=== PATIENT | male | born 1950 | race Caucasian/White ===

== ENCOUNTER → 2017-05-01 | Outpatient (CLI) | payer MEDICARE ==
[~2017-05-01] MED LIST: ACET325T38 PO; B/P PO; CYCL10TA9 PO; OTC DECONGESTANT PO; TRAM50TA2 PO
--- NOTE | 2017-05-01 16:33 | Diagnostic Imaging Report ---
INDICATION: Shortness of breath. EXAMINATION: PA and lateral chest. FINDINGS: There is scoliosis of the thoracic spine convex to the right. Heart size and pulmonary vascularity are normal. Lungs are clear. There are no effusions or pneumothoraces. IMPRESSION: Negative chest. Dictated by: Dictated on workstation # [id number]
== END ==
LOC: RAD 16:18
PROVIDERS: ATTEND Family Medicine
DX: M41.34 Thoracogenic scoliosis, thoracic region (principal); R06.02 Shortness of breath
CPT/HCPCS: 71020

== ENCOUNTER 2017-09-02 07:10 | Day surgery (SDC) | payer MEDICARE ==
[~2017-09-02] VITALS: Ht 172.7 cm; Wt 88.5 kg
[~2017-09-02 07:10] MED LIST changes: +BENA10TA2 PO; +C250T PO; +CALC-654 PO; +MULT1TAB69 PO; +RT-ALBUINH IH; +[UNRECOGNIZED DRUG - OTHER] IH
[2017-09-02] MEDS ORDERED: NS IV 500 ML 500 ML ONE (07:22)
[2017-09-02] MEDS ORDERED: NS IV 500 ML 500 ML IV SCH (07:30)
[2017-09-02 07:39] VITALS: BP 128/89
--- NOTE | 2017-09-02 08:27 | History & Physicial ---
History of Present Illness History of Present Illness Reason for visit/HPI to undergo colonoscopy regarding heme-positive stools. No family history of colon cancer or polyps Date of Admission Date Seen by Provider: Sep 02, 2017 Time Seen by Provider: 08:25 I consulted on this patient on 09/02/17 08:24 Attending Physician Candice Barrera MD Admitting Physician Portillo Brunner DO Consult Allergies and Home Medications Allergies Coded Allergies: No Known Drug Allergies (Unverified , 02/09/16) Home Medications Albuterol Sulfate 6.7 Gm Hfa.aer.ad, 2 PUFF IH TID, (Reported) Ascorbic Acid 250 Mg Tab, 500 MG PO DAILY, (Reported) Benazepril HCl 10 Mg Tablet, 10 MG PO DAILY, (Reported) Calcium Carbonate/Vitamin D3 1 Each Tablet, 2 EACH PO DAILY, (Reported) Multivitamin 1 Each Tablet, 1 EACH PO DAILY, (Reported) [Bespi] , 2 PUFF IH BID, (Reported) Past Bdwhfgj-Hdmwbn-Yerjxr Hx Patient Social History Marrital Status: Employed/Student: retired Alcohol Use: Denies Use Recreational Drug Use: No Smoking Status: Never a Smoker Recent Foreign Travel: No Contact w/other who traveled: No Recent Hopitalizations: No Immunizations Up To Date Tetanus Booster (TDap): Unknown Date of Pneumonia Vaccine: Aug 30, 2015 Date of Influenza Vaccine: Jul 30, 2017 Seasonal Allergies Seasonal Allergies: No Respiratory Yes COPD Cardiovascular Yes Hypertension Neurological No Genitourinary No Gastrointestinal No Musculoskeletal Yes Arthritis Endocrine History of Endocrine Disorders: No HEENT History of HEENT Disorders: No Cancer No Family Medical History Significant Family History: No Pertinent Family Hx Constitutional: no symptoms reported EENTM: no symptoms reported Respiratory: no symptoms reported Cardiovascular: no symptoms reported Gastrointestinal: no symptoms reported Genitourinary: no symptoms reported Musculoskeletal: no symptoms reported Skin: no symptoms reported Psychiatric/Neurological: No Symptoms Reported Physical Exam Vital Signs Vital Sign - Last 12Hours 09/02/17 07:39 Temp 97.6 Pulse 89 Resp 18 B/P (MAP) 128/89 Pulse Ox 93 O2 Delivery Room Air Capillary Refill : General Appearance: No Apparent Distress HEENT: Normal ENT Inspection Neck: Normal Inspection Respiratory: Lungs Clear Cardiovascular: Regular Rate, Rhythm Gastrointestinal: Non Tender, Soft Rectal: Deferred Back: Normal Inspection Extremity: Normal Inspection Neurologic/Psychiatric: Alert, Oriented x3 Skin: Warm/Dry Assessment/Plan Assessment and Plan gentleman with a positive Hemoccult test. Polyps, carcinoma etc. discussed. Details of colonoscopy reviewed;seems to be in agreement to proceed Problems: CANDICE BARRERA MD Sep 02, 2017 8:27 am
--- NOTE | 2017-09-02 08:27 | Conscious Sedation/ASA ---
Conscious Sedation Pre-Proced Time Reviewed: 08:27 ASA Class: 2 Airway Mallampati Classification: ([place] appropriate class) I. II. III, IV Lungs Heart ASA score ASA 1: a normal healthy patient ASA 2: a patient with a mild systemic disease (mid diabetes, controlled hypertension, obesity ASA 3: a patient with a severe systemic disease that limits activity (angina , COPD, prior Myocardial infarction) ASA 4: a patient with an incapacitating disease that is a constant threat to life (CHF, renal failure) ASA 5: a moribund patient not expected to survive 24 hrs. (ruptured aneurysm) ASA 6: a declared brain patient whose organs are being harvested. For emergent operations, add the letter E after the classification Grade 1 Sedation Plan: Discussed options with patient/fam Note The patient is an appropriate candidate to undergo the planned procedure, sedation, and anesthesia. The patient immediately re-assessed prior to indication. CANDICE BARRERA MD Sep 02, 2017 8:27 am
[2017-09-02] MEDS ORDERED: fentaNYL INJECTION 100 MCG/2 ML AMP ONE ×2 (08:31→08:32)
[2017-09-02] MEDS ORDERED: MIDAZOLAM 2 MG/2 ML (VERSED) VIAL ONE ×4 (08:32)
[2017-09-02] MEDS: fentaNYL INJECTION 100 MCG/2 ML AMP IVP PRN ×2 (08:50→08:57)
[2017-09-02] MEDS: MIDAZOLAM 2 MG/2 ML (VERSED) VIAL IVP PRN ×2 (08:55→08:58)
--- NOTE | 2017-09-02 09:21 | Endo Procedure Record ---
Endo Procedure Report Date of Procedure Sep 02, 2017 Surgeon (s) CANDICE BARRERA MD Post Procedure/Op Diagnosis 1 mm polyps 4 at the distal rectum 3 mm sessile polyp at the mid transverse colon Procedure Performed colonoscopy to cecum Hot biopsy polypectomy 4rectum snare polypectomy 1 Description of Procedure Anesthesia Type: Conscious Sedation Specimen(s) collected/removed rectal polyps. Polyp at transverse colon Description of the Procedure Indication for procedure: This gentleman was found to have positive Hemoccult test.therefore, he came in for colonoscopy. He denied any family history of colon cancer. Informed consent was obtained after reviewing the procedure in detail. Description of the procedure: She was placed in left lateral decubitus position and his vital signs were monitored. Conscious sedation was achieved using Versed and fentanyl. Examination of the perianal area revealed skin tags and a minimal degree of external hemorrhoids. Digital rectal examination was unremarkable. The colonoscope was introduced in the rectum and advanced to the cecum. It was then withdrawn slowly and the mucosa examined in a systematic fashion. Findings: 1. Internal hemorrhoids 2. Very few sigmoid diverticula 3. A total of 4 polyps, a millimeter each at the distal rectum. These were excised with hot biopsy forceps. 4. 3 mm sessile polyp at the mid transverse colon that was snared and retrieved. He tolerated the procedure well and was taken back to the nursing area in a stable condition. Impression: Heme occult positive test. Small rectal and a sessile polyp from the transverse colon excised. Recommend repeating in 3 years. Copies To: BRIAN NIX XAVIER M MD Sep 02, 2017 9:21 am
--- NOTE | 2017-09-02 09:22 | Discharge Inst-Simple/Standard ---
Discharge Inst-Standard Discharge Medications New, Converted or Re-Newed RX: Other Patient Instructions/Follow Up Plan of Care/Instructions/FU: repeat colonoscopy in 3 years Activity as Tolerated: Yes Discharge Diet: No Restrictions CANDICE BARRERA MD Sep 02, 2017 9:22 am
[2017-09-02 09:35] VITALS: BP 127/69
[2017-09-02 10:05] VITALS: BP 130/73
[2017-09-02 10:10] VITALS: BP 130/73
== END 2017-09-02 10:10 | disposition home or self-care (01) ==
LOC: ENDO 07:10
PROVIDERS: ATTEND Surgery
DX: K63.5 Polyp of colon (principal); K63.4 Enteroptosis; J44.9 Chronic obstructive pulmonary disease, unspecified; I10 Essential (primary) hypertension

== ENCOUNTER 2019-01-22 19:35 | Emergency (ER) | payer MEDICARE ==
[~2019-01-22] VITALS: Ht 172.7 cm; Wt 87.5 kg
[~2019-01-22 19:35] MED LIST changes: -BENA10TA2 PO; +BENA10TA7 PO
[2019-01-22] MEDS ORDERED: MELO15TA39 (19:43)
[2019-01-22] MEDS ORDERED: ATOR10TA66 (19:43)
[2019-01-22] MEDS ORDERED: DICL75TA2 (19:43)
--- NOTE | 2019-01-22 19:48 | ED General ---
General Chief Complaint: General Problems/Pain Stated Complaint: WEAKNESS Source of Information: Patient Exam Limitations: No Limitations History of Present Illness Date Seen by Provider: Jan 22, 2019 Time Seen by Provider: 19:45 Initial Comments To ER per EMS from home with reports of sudden onset weakness. He was standing at the microwave warming up dinner as he had not eaten all day when he became suddenly. He had to go sit down table where he became diaphoretic, short of breath and generally weak. EMS arrived and found an initial heart rate in the 80s, initial blood pressure of 90/60. Initial blood sugar of 151. He had no chest pain and no focal neurologic deficit or focal weakness. Upon arrival to the emergency room his blood pressures up to 104/76 and he states that he feels essentially back to normal. His blood pressures typically in the 140-150 systolic range, he does take benazepril 10 mg daily, no other antihypertensives. His shortness of breath has resolved and he continues to deny chest pain Timing/Duration: 1/2 Hour Severity: Moderate Associated Systoms: No Chest Pain, No Cough; Diaphoresis; No Fever/Chills, No Headaches, No Loss of Appetite, No Malaise, No Nausea/Vomiting, No Rash; Shortness of Air, Weakness Allergies and Home Medications Allergies Coded Allergies: No Known Drug Allergies (Unverified , 02/09/16) Home Medications Albuterol Sulfate 6.7 Gm Hfa.aer.ad, 2 PUFF IH TID, (Reported) Ascorbic Acid 250 Mg Tab, 500 MG PO DAILY, (Reported) Benazepril HCl 10 Mg Tablet, 10 MG PO DAILY, (Reported) Calcium Carbonate/Vitamin D3 1 Each Tablet, 2 EACH PO DAILY, (Reported) Multivitamin 1 Each Tablet, 1 EACH PO DAILY, (Reported) [Bespi] , 2 PUFF IH BID, (Reported) Patient Home Medication List Home Medication List Reviewed: Yes Review of Systems Review of Systems Constitutional: see HPI, diaphoresis, weakness EENTM: see HPI Respiratory: see HPI, short of breath Cardiovascular: no symptoms reported; No chest pain, No edema, No Hx of Intervention, No palpitations; syncope (near syncope); No vascular heart diseas Musculoskeletal: no symptoms reported, see HPI Skin: no symptoms reported Psychiatric/Neurological: No Symptoms Reported Hematologic/Lymphatic: No Symptoms Reported Immunological/Allergic: no symptoms reported Past Nahfpiw-Tllzsm-Wagoae Hx Patient Social History Recent Foreign Travel: No Contact w/Someone Who Travel: No Recent Hopitalizations: No Immunizations Up To Date Tetanus Booster (TDap): Unknown Date of Pneumonia Vaccine: Aug 30, 2015 Date of Influenza Vaccine: Jul 30, 2017 Seasonal Allergies Seasonal Allergies: No Past Medical History Respiratory: Yes COPD Cardiac: Yes Hypertension Neurological: No Genitourinary: No Gastrointestinal: No Musculoskeletal: Yes Arthritis Endocrine: No HEENT: No Cancer: No Family Medical History No Pertinent Family Hx Physical Exam Vital Signs Vital Signs - First Documented 01/22/19 01/22/19 19:35 19:36 Temp 96.2 Pulse 86 Resp 17 B/P (MAP) 107/67 (80) Pulse Ox 97 O2 Delivery Room Air Capillary Refill : Height, Weight, BMI Height: 5'8.00" Weight: 195lbs. 0.0oz. 88.393428kg; 29.7 BMI Method:Estimated General Appearance: No Apparent Distress, WD/WN, Other (alert and oriented, conversing appropriately with me. GCS 15. No longer diaphoretic, heart rate is in a sinus without ectopy, blood pressure 104 over 70s.) Eyes: Bilateral Eye Normal Inspection, Bilateral Eye PERRL, Bilateral Eye EOMI HEENT: PERRL/EOMI, Normal ENT Inspection Neck: Full Range of Motion, Normal Inspection Respiratory: Normal Breath Sounds, No Accessory Muscle Use, No Respiratory Distress Cardiovascular: Regular Rate, Rhythm, Normal Peripheral Pulses Gastrointestinal: Normal Bowel Sounds, Non Tender, Soft Extremity: Normal Capillary Refill, Normal Inspection Neurologic/Psychiatric: Alert, Oriented x3 Skin: Normal Color, Warm/Dry Progress/Results/Core Measures Suspected Sepsis SIRS Temperature: Pulse: Respiratory Rate: Laboratory Tests 01/22/19 19:35: White Blood Count 16.4H Blood Pressure / Mean: Laboratory Tests 01/22/19 19:35: Creatinine 1.42H, Platelet Count 255, Total Bilirubin 0.7 Results/Orders Lab Results Laboratory Tests Test 01/22/19 19:35 01/22/19 20:17 Range/Units White Blood Count 16.4 H 4.3-11.0 10^3/uL Red Blood Count 4.61 4.35-5.85 10^6/uL Hemoglobin 15.5 13.3-17.7 G/DL Hematocrit 45 40-54 % Mean Corpuscular Volume 98 80-99 FL Mean Corpuscular Hemoglobin 34 25-34 PG Mean Corpuscular Hemoglobin Concent 34 32-36 G/DL Red Cell Distribution Width 13.1 10.0-14.5 % Platelet Count 255 130-400 10^3/uL Mean Platelet Volume 9.8 7.4-10.4 FL Neutrophils (%) (Auto) 82 H 42-75 % Lymphocytes (%) (Auto) 11 L 12-44 % Monocytes (%) (Auto) 5 0-12 % Eosinophils (%) (Auto) 2 0-10 % Basophils (%) (Auto) 0 0-10 % Neutrophils # (Auto) 13.5 H 1.8-7.8 X 10^3 Lymphocytes # (Auto) 1.8 1.0-4.0 X 10^3 Monocytes # (Auto) 0.8 0.0-1.0 X 10^3 Eosinophils # (Auto) 0.3 0.0-0.3 10^3/uL Basophils # (Auto) 0.0 0.0-0.1 10^3/uL Neutrophils % (Manual) 89 % Lymphocytes % (Manual) 6 % Monocytes % (Manual) 4 % Eosinophils % (Manual) 1 % Basophils % (Manual) 0 % Band Neutrophils 0 % Blood Morphology Comment NORMAL Sodium Level 136 135-145 MMOL/L Potassium Level 5.0 3.6-5.0 MMOL/L Chloride Level 100 98-107 MMOL/L Carbon Dioxide Level 26 21-32 MMOL/L Anion Gap 10 5-14 MMOL/L Blood Urea Nitrogen 17 7-18 MG/DL Creatinine 1.42 H 0.60-1.30 MG/DL Estimat Glomerular Filtration Rate 49 BUN/Creatinine Ratio 12 Glucose Level 157 H 70-105 MG/DL Calcium Level 10.1 8.5-10.1 MG/DL Corrected Calcium 9.9 8.5-10.1 MG/DL Magnesium Level 2.2 1.8-2.4 MG/DL Total Bilirubin 0.7 0.1-1.0 MG/DL Aspartate Amino Transf (AST/SGOT) 24 5-34 U/L Alanine Aminotransferase (ALT/SGPT) 43 0-55 U/L Alkaline Phosphatase 75 40-136 U/L Myoglobin 53.0 10.0-92.0 NG/ML Troponin I < 0.028 <0.028 NG/ML B-Type Natriuretic Peptide 23.9 <100.0 PG/ML Total Protein 7.3 6.4-8.2 GM/DL Albumin 4.3 3.2-4.5 GM/DL Urine Color YELLOW Urine Clarity SLIGHTLY CLOUDY Urine pH 5 5-9 Urine Specific Gibson 1.015 L 1.016-1.022 Urine Protein 3+ H NEGATIVE Urine Glucose (UA) 1+ H NEGATIVE Urine Ketones 1+ H NEGATIVE Urine Nitrite NEGATIVE NEGATIVE Urine Bilirubin NEGATIVE NEGATIVE Urine Urobilinogen 1 NORMAL MG/DL Urine Leukocyte Esterase 2+ H NEGATIVE Urine RBC (Auto) 1+ H NEGATIVE Urine RBC 0-2 /HPF Urine WBC 5-10 H /HPF Urine Crystals NONE /LPF Urine Bacteria TRACE /HPF Urine Casts PRESENT /LPF Urine Hyaline Casts >50 H /LPF Urine Granular Casts 2-5 H /LPF Urine Mucus SMALL H /LPF Urine Culture Indicated YES My Orders Orders - RONY KELLER APRN Cbc With Automated Diff (01/22/19 19:42) Magnesium (01/22/19 19:42) Chest 1 View, Ap/Pa Only (01/22/19 19:42) Ekg Tracing (01/22/19 19:42) Cardiac Profile 1 (01/22/19 19:42) Comprehensive Metabolic Panel (01/22/19 19:42) Myoglobin Serum (01/22/19 19:42) O2 (01/22/19 19:42) Monitor-Rhythm Ecg Trace Only (01/22/19 19:42) Lipid Panel (01/23/19 06:00) Saline Lock/Iv-Start (01/22/19 19:42) BNP (01/22/19 19:42) Manual Differential (01/22/19 19:35) Ua Culture If Indicated (01/22/19 20:01) Urine Culture (01/22/19 20:17) Rocephin 1 Gm Iv (1x Dose) (01/22/19 21:00) Vital Signs/I&O 01/22/19 01/22/19 19:35 19:36 Temp 96.2 Pulse 86 Resp 17 B/P (MAP) 107/67 (80) Pulse Ox 97 97 O2 Delivery Room Air Room Air Capillary Refill : Diagnostic Imaging Diagonstic Imaging: Xray Comments NAME: TOYA CHAVEZ [facility] REC#: [id number] PT STATUS: REG ER : 1950 PHYSICIAN: RONY KELLER APRN ADMIT DATE: 01/22/19/ER Draft Date of Exam:01/22/19 CHEST 1 VIEW, AP/PA ONLY INDICATION: Weakness. FINDINGS: Upright chest shows normal heart size and vascularity. The lungs are clear. There is local eventration of the left hemidiaphragm. There is no effusion or pneumothorax. There is scoliosis with no acute bony abnormality. IMPRESSION: No acute abnormality is seen with no change from 05/01/2017. Dictated on workstation # [id number] Dict: 01/22/192004 Trans: 01/22/192009 [facility] [id number] Interpreted by: GABRIELLA YOUNG MD Electronically signed by: Departure Communication (Admissions) 2051-he states that he feels back to normal and "ready to go home". Discussed with him a bladder infection. We'll give a dose of Rocephin here and then discharged to home. Blood pressure 110/64, heart rate 80s no ectopy sinus. Impression Primary Impression: Transient hypotension Additional Impression: Urinary tract infection Disposition: 01 HOME, SELF-CARE Condition: Stable Departure-Patient Inst. Decision time for Depature: 20:53 Referrals: BRIAN NIX DO (PCP/Family) Primary Care Physician Patient Instructions: Urinary Tract Infection, Adult (DC) Add. Discharge Instructions: 1. Go see Dr. Dr. Nix tomorrow. Return to ER for any concerns All discharge instructions reviewed with patient and/or family. Voiced understanding. Scripts Cefuroxime Axetil (Cefuroxime) 250 Mg Tablet 250 MG PO BID, #14 TAB Prov: RONY KELLER APRN 01/22/19 Copy Copies To 1: BRIAN NIX PETER J APRN Jan 22, 2019 19:48
[2019-01-22 19:50] LABS: BASOPHILS % (AUTO) 0 % (0-10); EOSINOPHILS # (AUTO) 0.3 10^3/uL (0.0-0.3); EOSINOPHILS % (AUTO) 2 % (0-10); HEMATOCRIT 45 % (40-54); HEMOGLOBIN 15.5 G/DL (13.3-17.7); LYMPHOCYTES # (AUTO) 1.8 X 10^3 (1.0-4.0); LYMPHOCYTES % (AUTO) 11 % (12-44); MEAN CORPUSCULAR HEMOGLOBIN 34 PG (25-34); MEAN CORPUSCULAR HGB CONC 34 G/DL (32-36); MEAN CORPUSCULAR VOLUME 98 FL (80-99); MEAN PLATELET VOLUME 9.8 FL (7.4-10.4); MONOCYTES # (AUTO) 0.8 X 10^3 (0.0-1.0); MONOCYTES % (AUTO) 5 % (0-12); NEUTROPHILS # (AUTO) 13.5 X 10^3 (1.8-7.8); NEUTROPHILS % (AUTO) 82 % (42-75); PLATELET COUNT 255 10^3/uL (130-400); RED CELL DISTRIBUTION WIDTH 13.1 % (10.0-14.5); WHITE BLOOD COUNT 16.4 10^3/uL (4.3-11.0)
[2019-01-22 20:03] LABS: ALANINE AMINOTRANSFERASE 43 U/L (0-55); ALBUMIN 4.3 GM/DL (3.2-4.5); ALKALINE PHOSPHATASE 75 U/L (40-136); BILIRUBIN,TOTAL 0.7 MG/DL (0.1-1.0); BUN/CREATININE RATIO 12; CALCIUM 10.1 MG/DL (8.5-10.1); CARBON DIOXIDE 26 MMOL/L (21-32); CHLORIDE 100 MMOL/L (98-107); CREATININE SERUM 1.42 MG/DL (0.60-1.30); GFR ESTIMATED 49; GLUCOSE 157 MG/DL (70-105); MAGNESIUM 2.2 MG/DL (1.8-2.4); SODIUM 136 MMOL/L (135-145); TOTAL PROTEIN 7.3 GM/DL (6.4-8.2)
[2019-01-22 20:08] LABS: BAND NEUTROPHILS 0 %; BASOPHILS % (MANUAL) 0 %; EOSINOPHILS % (MANUAL) 1 %; LYMPHOCYTES % (MANUAL) 6 %; MONOCYTES % (MANUAL) 4 %; NEUTROPHILS % (MANUAL) 89 %; RBC MORPH NORMAL
--- NOTE | 2019-01-22 20:11 | Diagnostic Imaging Report ---
INDICATION: Weakness. FINDINGS: Upright chest shows normal heart size and vascularity. The lungs are clear. There is local eventration of the left hemidiaphragm. There is no effusion or pneumothorax. There is scoliosis with no acute bony abnormality. IMPRESSION: No acute abnormality is seen with no change from 05/01/2017. Dictated by: Dictated on workstation # [id number]
[2019-01-22 20:29] LABS: BILIRUBIN,URINE NEGATIVE (NEGATIVE); CLARITY,URINE SLIGHTLY CLOUDY; GLUCOSE, URINE (UA) 1+ (NEGATIVE); KETONES,URINE 1+ (NEGATIVE); LEUKOCYTE ESTERASE ,URINE 2+ (NEGATIVE); NITRITE,URINE NEGATIVE (NEGATIVE); PH,URINE 5 (5-9); PROTEIN,URINE 3+ (NEGATIVE); UROBILINOGEN,URINE 1 MG/DL (NORMAL)
--- NOTE | 2019-01-22 20:30 | NUR ---
ems iv fluids finished.
[2019-01-22 20:40] LABS: BACTERIA,URINE TRACE /HPF; COLOR,URINE YELLOW; HYALINE CASTS, URINE >50 /LPF; RBC,URINE 0-2 /HPF
[2019-01-22] MEDS ORDERED: CEFU250T80 PO (20:54)
[2019-01-22] MEDS ORDERED: cefTRIAXone FOR IV USE 1,000 MG in WATER (STERILE) FOR INJECTION 10 ML IV ONE (21:00)
[2019-01-22 21:01] VITALS: BP 118/69
== END 2019-01-22 21:04 | disposition home or self-care (01) ==
LOC: EDUNIT# 19:35 → ER 19:36
DX: I95.9 Hypotension, unspecified (principal); N39.0 Urinary tract infection, site not specified; J44.9 Chronic obstructive pulmonary disease, unspecified; I10 Essential (primary) hypertension
CPT/HCPCS: 36415; 71045; 80053; 81000; 83735; 83874; 83880; 84484; 85007; 85027; 87088; 93005; 93041

== ENCOUNTER 2019-03-06 12:32 | Emergency (ER) | payer MEDICARE ==
[~2019-03-06] VITALS: Ht 176.5 cm; Wt 88.5 kg
[~2019-03-06 12:32] MED LIST changes: +ATOR10TA66; +CEFU250T80 PO; +DICL75TA2; +MELO15TA39
[2019-03-06] MEDS ORDERED: LIDOCAINE 1% INJ 20 ML 20 ML VIAL INJ ONE (13:00)
[2019-03-06] MEDS ORDERED: TETANUS,DIPTH,PERTUSS P/F (BOOSTRIX) 0.5 ML VIAL IM ONE (13:00)
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
[2019-03-06 13:47] VITALS: BP 130/80
--- NOTE | 2019-03-06 13:57 | NUR ---
NEOSPORIN OINTMENT WAS PLACED ON THE WOUND. A NONSTICK DRESSING WAS PLASED ON THE WOUND.
== END 2019-03-06 13:56 | disposition home or self-care (01) ==
LOC: EDUNIT# 12:32 → ER 12:33
DX: S81.812A Laceration without foreign body, left lower leg, initial encounter (principal); J44.9 Chronic obstructive pulmonary disease, unspecified; E78.00 Pure hypercholesterolemia, unspecified; I10 Essential (primary) hypertension; Z23 Encounter for immunization; Z90.89 Acquired absence of other organs; W22.09XA Striking against other stationary object, initial encounter
CPT/HCPCS: 90715; 99284

== ENCOUNTER → 2019-03-26 | Outpatient (CLI) | payer MEDICARE | LOC: WOUNDCARE 09:05 | PROVIDERS: ATTEND Nurse Practitioner | DX: L97.822 Non-pressure chronic ulcer of other part of left lower leg with fat layer exposed (principal) | CPT/HCPCS: 11042 ==

== ENCOUNTER → 2019-04-02 | Outpatient (CLI) | payer MEDICARE | LOC: WOUNDCARE 08:08 | PROVIDERS: ATTEND Nurse Practitioner | DX: L97.822 Non-pressure chronic ulcer of other part of left lower leg with fat layer exposed (principal) | CPT/HCPCS: 11042; 87070; 87075; 87205 ==

== ENCOUNTER → 2019-04-16 | Outpatient (CLI) | payer MEDICARE | LOC: WOUNDCARE 07:58 | PROVIDERS: ATTEND Nurse Practitioner | DX: L97.822 Non-pressure chronic ulcer of other part of left lower leg with fat layer exposed (principal); I87.2 Venous insufficiency (chronic) (peripheral) | CPT/HCPCS: 11042 ==

== ENCOUNTER → 2019-04-30 | Outpatient (CLI) | payer MEDICARE | LOC: WOUNDCARE 07:54 | PROVIDERS: ATTEND Nurse Practitioner | DX: L97.822 Non-pressure chronic ulcer of other part of left lower leg with fat layer exposed (principal); I96 Gangrene, not elsewhere classified; I87.2 Venous insufficiency (chronic) (peripheral) | CPT/HCPCS: 11042 ==

== ENCOUNTER → 2019-05-07 | Outpatient (CLI) | payer MEDICARE ==
[~2019-05-07] MED LIST changes: -BENA10TA7 PO; +BENA10TA9 PO
== END ==
LOC: WOUNDCARE 07:58
PROVIDERS: ATTEND Nurse Practitioner
DX: L97.822 Non-pressure chronic ulcer of other part of left lower leg with fat layer exposed (principal); I96 Gangrene, not elsewhere classified; I87.2 Venous insufficiency (chronic) (peripheral)
CPT/HCPCS: 11042

== ENCOUNTER → 2019-05-14 | Outpatient (CLI) | payer MEDICARE | LOC: WOUNDCARE 07:59 | PROVIDERS: ATTEND Nurse Practitioner | DX: L97.822 Non-pressure chronic ulcer of other part of left lower leg with fat layer exposed (principal); I87.2 Venous insufficiency (chronic) (peripheral); I96 Gangrene, not elsewhere classified | CPT/HCPCS: 99212 ==

== ENCOUNTER → 2019-08-13 | Outpatient (CLI) | payer MEDICARE ==
[2019-08-13 08:20] LABS: MEAN PLATELET VOLUME 9.3 FL (7.4-10.4); RED CELL DISTRIBUTION WIDTH 12.8 % (10.0-14.5); WHITE BLOOD COUNT 6.2 10^3/uL (4.3-11.0)
[2019-08-13 08:39] LABS: ALANINE AMINOTRANSFERASE 25 U/L (0-55); ALBUMIN 4.6 GM/DL (3.2-4.5); ALKALINE PHOSPHATASE 75 U/L (40-136); BUN/CREATININE RATIO 15; CALCIUM 10.3 MG/DL (8.5-10.1); CARBON DIOXIDE 26 MMOL/L (21-32); CHLORIDE 100 MMOL/L (98-107); CHOLESTEROL 181 MG/DL (< 200); CREATININE SERUM 1.24 MG/DL (0.60-1.30); GFR ESTIMATED 57; GLUCOSE 100 MG/DL (70-105); HDL CHOLESTEROL 42 MG/DL (40-60); SODIUM 137 MMOL/L (135-145); TOTAL PROTEIN 7.8 GM/DL (6.4-8.2); TRIGLYCERIDES 100 MG/DL (<150); VLDL CHOLESTEROL 20 MG/DL (5-40)
[2019-08-13 08:46] LABS: POTASSIUM 5.5 MMOL/L (3.6-5.0)
== END ==
LOC: LAB 08:04
PROVIDERS: ATTEND Family Medicine
DX: I10 Essential (primary) hypertension (principal); E78.5 Hyperlipidemia, unspecified; J44.9 Chronic obstructive pulmonary disease, unspecified
CPT/HCPCS: 36415; 80053; 80061; 85027

== ENCOUNTER → 2019-09-23 | Outpatient (CLI) | payer MEDICARE ==
[~2019-09-23] MED LIST changes: -TRAM50TA2 PO; +TRM50T PO
[2019-09-23 16:01] LABS: BASOPHILS % (AUTO) 0 % (0-10); EOSINOPHILS % (AUTO) 0 % (0-10); HEMATOCRIT 46 % (40-54); HEMOGLOBIN 15.2 G/DL (13.3-17.7); LYMPHOCYTES # (AUTO) 0.7 X 10^3 (1.0-4.0); LYMPHOCYTES % (AUTO) 3 % (12-44); MEAN CORPUSCULAR HEMOGLOBIN 32 PG (25-34); MEAN CORPUSCULAR HGB CONC 33 G/DL (32-36); MEAN CORPUSCULAR VOLUME 96 FL (80-99); MEAN PLATELET VOLUME 9.5 FL (7.4-10.4); MONOCYTES # (AUTO) 1.5 X 10^3 (0.0-1.0); MONOCYTES % (AUTO) 6 % (0-12); NEUTROPHILS # (AUTO) 23.5 X 10^3 (1.8-7.8); NEUTROPHILS % (AUTO) 91 % (42-75); PLATELET COUNT 220 10^3/uL (130-400); RED CELL DISTRIBUTION WIDTH 12.8 % (10.0-14.5); WHITE BLOOD COUNT 25.7 10^3/uL (4.3-11.0)
[2019-09-23 16:15] LABS: CALCIUM 10.3 MG/DL (8.5-10.1); CREATININE SERUM 1.55 MG/DL (0.60-1.30); POTASSIUM 5.2 MMOL/L (3.6-5.0)
[2019-09-23 17:20] LABS: BAND NEUTROPHILS 3 %; LYMPHOCYTES % (MANUAL) 2 %; MONOCYTES % (MANUAL) 5 %; NEUTROPHILS % (MANUAL) 90 %
[2019-09-23 17:21] LABS: SMEAR SCAN COMMENT YES; STOMATOCYTES MODERATE; TOXIC GRANULATION/VACUOLAZATIO 2+
--- NOTE | 2019-09-23 17:46 | Diagnostic Imaging Report ---
INDICATION: Cough and congestion, fever. TECHNIQUE: Two view chest 4:17 PM CORRELATION STUDY: 01/22/2019 FINDINGS: Rightward curvature thoracic spine with slight distortion of the chest anatomy. Given this, the heart size and vasculature within normal limits. Patchy infiltrate at the right lower lobe most compatible with pneumonia. Lung ragland otherwise hyperinflated. Advanced degenerative changes thoracic spine. IMPRESSION: 1. Findings suggestive of right lower lobe pneumonia. Follow-up imaging to resolution would be recommended. Dictated by: Dictated on workstation # [id number]
== END ==
LOC: RAD 15:44
PROVIDERS: ATTEND Family Medicine
DX: R05 Cough (principal); R09.89 Other specified symptoms and signs involving the circulatory and respiratory systems; R50.9 Fever, unspecified
CPT/HCPCS: 36415; 71046; 80048; 85007; 85027

== ENCOUNTER → 2019-09-25 | Outpatient (CLI) | payer MEDICARE ==
[2019-09-25 09:59] LABS: BASOPHILS % (AUTO) 0 % (0-10); EOSINOPHILS # (AUTO) 0.2 10^3/uL (0.0-0.3); EOSINOPHILS % (AUTO) 1 % (0-10); HEMATOCRIT 43 % (40-54); HEMOGLOBIN 14.2 G/DL (13.3-17.7); LYMPHOCYTES # (AUTO) 0.9 X 10^3 (1.0-4.0); LYMPHOCYTES % (AUTO) 6 % (12-44); MEAN CORPUSCULAR HEMOGLOBIN 32 PG (25-34); MEAN CORPUSCULAR HGB CONC 33 G/DL (32-36); MEAN CORPUSCULAR VOLUME 97 FL (80-99); MEAN PLATELET VOLUME 9.6 FL (7.4-10.4); MONOCYTES # (AUTO) 0.6 X 10^3 (0.0-1.0); MONOCYTES % (AUTO) 4 % (0-12); NEUTROPHILS # (AUTO) 12.2 X 10^3 (1.8-7.8); NEUTROPHILS % (AUTO) 88 % (42-75); PLATELET COUNT 186 10^3/uL (130-400); RED CELL DISTRIBUTION WIDTH 12.9 % (10.0-14.5); WHITE BLOOD COUNT 13.8 10^3/uL (4.3-11.0)
--- NOTE | 2019-09-25 10:16 | Diagnostic Imaging Report ---
INDICATION: Pneumonia and COPD. Time of exam: 1008 AM Correlation is made with prior exam from 09/23/2019. Heart size is normal. There is some continued infiltrate in the right base. The remainder of the lung ragland are clear. The pulmonary vascularity is normal. No effusion is seen. No pneumothorax is identified. IMPRESSION: Continued right basilar infiltrate suggestive of pneumonia. Dictated by: Dictated on workstation # [id number]
[2019-09-25 10:35] LABS: BAND NEUTROPHILS 0 %; BASOPHILS % (MANUAL) 0 %; EOSINOPHILS % (MANUAL) 3 %; LYMPHOCYTES % (MANUAL) 3 %; MONOCYTES % (MANUAL) 7 %; NEUTROPHILS % (MANUAL) 87 %; RBC MORPH NORMAL
== END ==
LOC: RAD FS 09:43
PROVIDERS: ATTEND Family Medicine
DX: J18.9 Pneumonia, unspecified organism (principal); J44.9 Chronic obstructive pulmonary disease, unspecified; R91.8 Other nonspecific abnormal finding of lung field
CPT/HCPCS: 36415; 71046; 83605; 85007; 85027

== ENCOUNTER → 2019-10-01 | Outpatient (CLI) | payer MEDICARE ==
[~2019-10-01] MED LIST changes: +TRAM50TA2 PO; -TRM50T PO
--- NOTE | 2019-10-01 09:02 | Diagnostic Imaging Report ---
INDICATION: Pneumonia Comparison is made to the study of 09/25/2019. There is improvement in aeration of the right lung base. No consolidation or pneumothorax identified. There is no significant pleural fluid. There is continued eventration of the left hemidiaphragm. Mild right convexity thoracic spinal curvature noted with diffuse thoracic spondylosis. IMPRESSION: Resolution of right basilar infiltrate seen on previous exam. Dictated by: Dictated on workstation # [id number]
== END ==
LOC: RAD 08:14
PROVIDERS: ATTEND Family Medicine
DX: J18.9 Pneumonia, unspecified organism (principal)
CPT/HCPCS: 71046

== ENCOUNTER → 2019-11-14 | Outpatient (CLI) | payer MEDICARE ==
[~2019-11-14] MED LIST changes: -TRAM50TA2 PO; +TRM50T PO
[2019-11-14 08:03] LABS: CHOLESTEROL 172 MG/DL (< 200); HDL CHOLESTEROL 41 MG/DL (40-60); TRIGLYCERIDES 123 MG/DL (<150); VLDL CHOLESTEROL 25 MG/DL (5-40)
== END ==
LOC: LAB 07:29
PROVIDERS: ATTEND Family Medicine
DX: E78.5 Hyperlipidemia, unspecified (principal)
CPT/HCPCS: 36415; 80061

== ENCOUNTER → 2020-06-10 | Outpatient (CLI) | payer MEDICARE ==
[~2020-06-10] MED LIST changes: +ASCO250T16 PO; +BENA10TA66 PO; -BENA10TA9 PO; -C250T PO; +MULT-567 PO; -MULT1TAB69 PO
[2020-06-10 07:17] LABS: HEMOGLOBIN 16.2 G/DL (13.3-17.7); MEAN PLATELET VOLUME 9.3 FL (7.4-10.4); RED CELL DISTRIBUTION WIDTH 13.2 % (10.0-14.5); WHITE BLOOD COUNT 7.5 10^3/uL (4.3-11.0)
[2020-06-10 07:45] LABS: ALBUMIN 4.5 GM/DL (3.2-4.5); BILIRUBIN,TOTAL 0.6 MG/DL (0.1-1.0); CREATININE SERUM 1.27 MG/DL (0.60-1.30); POTASSIUM 5.2 MMOL/L (3.6-5.0); TOTAL PROTEIN 7.8 GM/DL (6.4-8.2)
== END ==
LOC: LAB 06:55
PROVIDERS: ATTEND Family Medicine
DX: I10 Essential (primary) hypertension (principal); E78.5 Hyperlipidemia, unspecified
CPT/HCPCS: 36415; 80053; 80061; 84153; 85027

== ENCOUNTER 2021-05-02 09:27 | Outpatient (CLI) | payer MEDICARE ==
[~2021-05-02] VITALS: Ht 172.7 cm; Wt 89.0 kg
[2021-05-02] MEDS ORDERED: MULT-1056 PO (10:05)
[2021-05-02] MEDS ORDERED: MELO15TA39 PO (10:05)
[2021-05-02] MEDS ORDERED: TURM500C4 PO (10:05)
[2021-05-02] MEDS ORDERED: ATOR10TA66 PO (10:05)
[2021-05-02] MEDS ORDERED: RT-ALBUINH IH (10:05)
[2021-05-02] MEDS ORDERED: GLYC10.7 IH (10:05)
[2021-05-02] MEDS ORDERED: BENA10TA66 PO (10:05)
[2021-05-02] MEDS ORDERED: ASCO-262 PO (10:05)
[2021-05-02] MEDS ORDERED: CA C1TAB73 PO (10:05)
[2021-05-02] MEDS ORDERED: CEPH500T PO (10:05)
== END 2021-05-02 11:37 | disposition home or self-care (01) ==
LOC: PREOP 09:27
PROVIDERS: ATTEND Surgery
DX: Z01.818 Encounter for other preprocedural examination (principal)

== ENCOUNTER → 2021-08-01 | Outpatient (CLI) | payer MEDICARE ==
[~2021-08-01] MED LIST changes: +ASCO-262 PO; +ATOR10TA66 PO; +CA C1TAB73 PO; +CEPH500T PO; +GLYC10.7 IH; +MELO15TA39 PO; +MULT-1056 PO; +TURM500C4 PO
[2021-08-01 06:56] LABS: HEMATOCRIT 49 % (40-54); HEMOGLOBIN 16.5 g/dL (13.3-17.7); MEAN CORPUSCULAR HEMOGLOBIN 32 pg (25-34); MEAN CORPUSCULAR HGB CONC 33 g/dL (32-36); MEAN CORPUSCULAR VOLUME 97 fL (80-99); PLATELET COUNT 214 10^3/uL (130-400); WHITE BLOOD COUNT 6.8 10^3/uL (4.3-11.0)
[2021-08-01 07:13] LABS: ALBUMIN 4.5 GM/DL (3.2-4.5); POTASSIUM 5.1 MMOL/L (3.6-5.0)
[2021-08-01 07:14] LABS: CALCIUM 10.4 MG/DL (8.5-10.1)
[2021-08-01 07:17] LABS: BILIRUBIN,TOTAL 0.7 MG/DL (0.1-1.0)
[2021-08-01 07:19] LABS: CREATININE SERUM 1.21 MG/DL (0.60-1.30)
== END ==
LOC: LAB 06:37
PROVIDERS: ATTEND Family Medicine
DX: J44.9 Chronic obstructive pulmonary disease, unspecified (principal); I10 Essential (primary) hypertension; E78.5 Hyperlipidemia, unspecified
CPT/HCPCS: 36415; 80053; 80061; 85027

== ENCOUNTER → 2021-09-26 | Outpatient (CLI) | payer MEDICARE, OTHER ==
[~2021-09-26] MED LIST changes: +CYCL10TA25 PO; -CYCL10TA9 PO
--- NOTE | 2021-09-26 10:25 | Diagnostic Imaging Report ---
Indication: Right popliteal fossa pain Sonography of the popliteal fossa region of the right knee shows a 1 x 2 x 4.5 cm cyst present. No solid mass or abnormal vascularity is seen. IMPRESSION: There is a popliteal cyst present. Dictated by: Dictated on workstation # [id number]
== END ==
LOC: RAD 10:00
PROVIDERS: ATTEND Family Medicine
DX: M71.22 Synovial cyst of popliteal space [Baker], left knee (principal)
CPT/HCPCS: 76881

== ENCOUNTER → 2021-11-13 | Outpatient (CLI) | payer MEDICARE, OTHER ==
--- NOTE | 2021-11-13 11:34 | Diagnostic Imaging Report ---
INDICATION: Mckeon's cyst. Chronic pain. EXAMINATION: Right knee, 11/13/2021. COMPARISON: 02/09/2016. FINDINGS: Three views of the knee. There is mild patellofemoral narrowing and spurring. There is moderate medial compartment narrowing and spurring with chondrocalcinosis likely on the basis of CPPD arthropathy. The lateral joint space appears maintained. There are no fractures or dislocations. IMPRESSION: 1. 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 Dictated by: Dictated on workstation # [id number]
== END ==
LOC: RAD 10:35
PROVIDERS: ATTEND Family Medicine Sports Medicine
DX: M17.11 Unilateral primary osteoarthritis, right knee (principal)
CPT/HCPCS: 73562

== ENCOUNTER → 2022-04-16 | Outpatient (CLI) | payer MEDICARE, OTHER ==
[2022-04-16 07:29] LABS: HEMATOCRIT 47 % (40-54); HEMOGLOBIN 15.4 g/dL (13.3-17.7); MEAN CORPUSCULAR HEMOGLOBIN 33 pg (25-34); MEAN CORPUSCULAR HGB CONC 33 g/dL (32-36); MEAN CORPUSCULAR VOLUME 100 fL (80-99); MEAN PLATELET VOLUME 9.1 fL (9.0-12.2); PLATELET COUNT 223 10^3/uL (130-400); WHITE BLOOD COUNT 6.4 10^3/uL (4.3-11.0)
--- NOTE | 2022-04-16 07:46 | Diagnostic Imaging Report ---
Indication: Shortness of breath and COPD. Comparison is made with prior exam of 10/01/2019. FINDINGS: The heart size is normal. There is some mild right convexity scoliosis. There is no pleural effusion, pneumothorax or pneumonia. Mediastinum is unremarkable. There is a faint ovoid opacity above the left hemidiaphragm. IMPRESSION: Faint ovoid opacity above the left hemidiaphragm. This is most likely a lipoma projected off the diaphragm although other mass cannot be excluded. Recommend further evaluation with CT chest. Mild right convexity thoracic scoliosis. No other acute cardiac pulmonary abnormality. Dictated by: Dictated on workstation # [id number]
[2022-04-16 07:48] LABS: ALBUMIN 4.3 GM/DL (3.2-4.5); BILIRUBIN,TOTAL 0.7 MG/DL (0.1-1.0); CALCIUM 9.9 MG/DL (8.5-10.1); CREATININE SERUM 1.11 MG/DL (0.60-1.30); POTASSIUM 4.9 MMOL/L (3.6-5.0); TOTAL PROTEIN 7.4 GM/DL (6.4-8.2)
== END ==
LOC: RAD 07:08
PROVIDERS: ATTEND Family Medicine
DX: M41.84 Other forms of scoliosis, thoracic region (principal); J44.9 Chronic obstructive pulmonary disease, unspecified; I10 Essential (primary) hypertension; R91.8 Other nonspecific abnormal finding of lung field; R97.20 Elevated prostate specific antigen [PSA]
CPT/HCPCS: 36415; 71046; 80053; 80061; 84153; 85027

== ENCOUNTER → 2022-04-24 | Outpatient (CLI) | payer MEDICARE, OTHER ==
[~2022-04-24] MED LIST changes: +RT-ALBUTEROL SULF 2.5 MG/3 ML PRE-MIX VIAL INH ONE
== END ==
LOC: RT 09:15
PROVIDERS: ATTEND Family Medicine
DX: J44.9 Chronic obstructive pulmonary disease, unspecified (principal)
CPT/HCPCS: 94060; 94726; 94729

== ENCOUNTER → 2022-05-03 | Outpatient (CLI) | payer MEDICARE, OTHER ==
[~2022-05-03] MED LIST changes: +AMLO-251 PO; +ASPI-999 PO; +ATOR40TA70 PO; +ATOR80TA64 PO; +CALC-823 PO; +CARV3.122 PO; +CATHETER FLUSH 10 ML SYR IV PRN; +CLOP75TA28 PO; +HOLD METFORMIN - RECEIVED CONTRAST 20 ML VIAL IV SCH; +IOHEXOL 350 MG/ML 100 ML (OMNIPAQUE 350) VIAL IV ONE; +LISI10TA25 PO; +NS 100 ML (IVPB) BAG IV ONE; +PANT20TA18 PO; -RT-ALBUTEROL SULF 2.5 MG/3 ML PRE-MIX VIAL INH ONE
--- NOTE | 2022-05-03 15:59 | Diagnostic Imaging Report ---
INDICATION: COPD, shortness of breath. Abnormal chest x-ray with density adjacent to left hemidiaphragm. COMPARISON: Comparison made to chest x-ray of 04/16/2022. TECHNIQUE: Multiple contiguous axial images were obtained through the chest after administration of intravenous contrast. Auto Exposure Controls were utilized during the CT exam to meet ALARA standards for radiation dose reduction. FINDINGS: There are no enlarged mediastinal or hilar nodes. There are no enlarged axillary nodes or chest wall lesions. There is no pleural or pericardial fluid. Lung parenchymal windows demonstrate diffuse emphysematous changes. There is no pulmonary parenchymal consolidation or discrete nodule. There is a posterior diaphragmatic hernia on the left side with a small amount of fat herniating through the defect, compatible with Bochdalek hernia. This likely explains the opacity seen on chest x-ray. IMPRESSION: COPD changes. No focal infiltrate or discrete mass lesion. Posterior diaphragmatic hernia on the left side, with small amount of fat herniating through defect, this explains the density seen on chest x-ray. Dictated by: Dictated on workstation # [id number]
--- NOTE | 2022-05-03 16:23 | Diagnostic Imaging Report ---
INDICATION: Peripheral vascular disease with diminished pulses. Arterial Doppler right leg Beginning in the mid superficial femoral artery at the right leg the wave pattern becomes monophasic with markedly reduced velocities. The low velocities are maintained throughout the right leg with persistent monophasic flow. There is extensive calcified plaque seen throughout the right leg. IMPRESSION: Diffuse calcific arterial sclerosis with a hemodynamically significant stenosis in the proximal right superficial femoral artery. Dictated by: Dictated on workstation # [id number]
== END ==
LOC: RAD 13:30
PROVIDERS: ATTEND Family Medicine
DX: J44.9 Chronic obstructive pulmonary disease, unspecified (principal); K44.9 Diaphragmatic hernia without obstruction or gangrene; I70.201 Unspecified atherosclerosis of native arteries of extremities, right leg
CPT/HCPCS: 71260; 93926

== ENCOUNTER → 2022-05-03 | Outpatient (CLI) | payer MEDICARE, OTHER ==
[~2022-05-03] MED LIST changes: -AMLO-251 PO; -ASPI-999 PO; -ATOR40TA70 PO; -ATOR80TA64 PO; -CALC-823 PO; -CARV3.122 PO; -CLOP75TA28 PO; -LISI10TA25 PO; -PANT20TA18 PO
== END ==
LOC: RAD 13:26
PROVIDERS: ATTEND Family Medicine
DX: J44.9 Chronic obstructive pulmonary disease, unspecified (principal); I73.9 Peripheral vascular disease, unspecified

== ENCOUNTER 2022-05-10 15:23 | Emergency (ER) | payer MEDICARE, OTHER ==
[~2022-05-10] VITALS: Ht 172 cm; Wt 81.0 kg
[~2022-05-10 15:23] MED LIST changes: -CATHETER FLUSH 10 ML SYR IV PRN; -HOLD METFORMIN - RECEIVED CONTRAST 20 ML VIAL IV SCH; -IOHEXOL 350 MG/ML 100 ML (OMNIPAQUE 350) VIAL IV ONE; -NS 100 ML (IVPB) BAG IV ONE
--- NOTE | 2022-05-10 15:42 | ED Neurological Problem ---
General Chief Complaint: Neuro-Stroke Like Symptoms Stated Complaint: STROKE LIKE SYMPTOMS Source: patient Exam Limitations: no limitations History of Present Illness Date Seen by Provider: May 10, 2022 Time Seen by Provider: 15:28 Initial Comments 71-year-old male with past medical history of COPD and hypertension most notably coming in due to left-sided numbness and chest discomfort. Started roughly 30 minutes prior to arrival. He says is mostly tingling on his left arm and leg. Has never had symptoms like this before, it is constant, nothing seems to make it better or worse. Denies any cardiac history, has had a prior blood clot in his right leg years ago, does not take any blood thinners anymore, no hem optysis, shortness of breath, abdominal pain, nausea, vomiting, diarrhea, rash, or any other concerns. Allergies and Home Medications Allergies Coded Allergies: No Known Drug Allergies (Unverified , 02/09/16) Patient Home Medication List Home Medication List Reviewed: Yes Albuterol Sulfate (Proair Hfa) 1 Puff Puff, 2 PUFF IH TID PRN for WHEEZING, (Reported) Entered as Reported by: MARICARMEN SHELTON on 05/02/21 100 Ascorbate Calcium (Vitamin C) 500 Mg Tablet, 2 TAB PO DAILY, (Reported) Entered as Reported by: MARICARMEN SHELTON on 05/02/21 100 Atorvastatin Calcium (Atorvastatin Calcium) 10 Mg Tablet, 10 MG PO HS, (Reported) Entered as Reported by: MARICARMEN SHELTON on 05/02/21 100 Benazepril HCl (Benazepril HCl) 10 Mg Tablet, 10 MG PO DAILY, (Reported) Entered as Reported by: MARICARMEN SHELTON on 05/02/21 100 Calcium Carb/D3/Magnesium/Zinc (Tylor Mag Zinc + D Tablet) 1 Each Tablet, 2 EACH PO DAILY, (Reported) Entered as Reported by: MARICARMEN SHELTON on 05/02/21 100 Cephalexin (Cephalexin) 500 Mg Tablet, 500 MG PO TID, (Reported) Entered as Reported by: MARICARMEN SHELTON on 05/02/21 100 Glycopyrrolate/Formoterol Fum (Bevespi Aerosphere Inhaler) 10.7 Gm Hfa.aer.ad, 2 PUFF IH BID, (Reported) Entered as Reported by: MARICARMEN SHELTON on 05/02/21 100 Meloxicam (Meloxicam) 15 Mg Tablet, 15 MG PO DAILY, (Reported) Entered as Reported by: MARICARMEN SHELTON on 05/02/21 100 Multivit-Min/FA/Lycopen/Lutein (Men 50 Plus Multivitamin Tab) 1 Each Tablet, 1 EACH PO DAILY, (Reported) Entered as Reported by: MARICARMEN SHELTON on 05/02/21 100 Turmeric/Turmeric Root Extract (Turmeric 500 mg Capsule) 1 Each Capsule, 2 EACH PO DAILY, (Reported) Entered as Reported by: MARICARMEN SHELTON on 05/02/21 100 Review of Systems Review of Systems Constitutional: No fever Eyes: Denies Blurred Vision Ears, Nose, Mouth, Throat: no symptoms reported Respiratory: no symptoms reported Cardiovascular: chest pain Gastrointestinal: no symptoms reported Genitourinary: no symptoms reported Musculoskeletal: no symptoms reported Skin: no symptoms reported Psychiatric/Neurological: Headache, Numbness, Weakness Endocrine: No Symptoms Reported Hematologic/Lymphatic: No Symptoms Reported All Other Systems Reviewed Negative Unless Noted: Yes Past Ybpudia-Yduulo-Mhfcnn Hx Patient Social History Tobacco Use?: No Smoking Status: Former Smoker Substance use?: No Alcohol Use?: No Immunizations Up To Date Tetanus Booster (TDap): Unknown Seasonal Allergies Seasonal Allergies: No Past Medical History Surgeries: Yes (BILATERAL KNEE SURGERIES (NOT REPLACEMENTS)) Adenoidectomy, Orthopedic, Tonsillectomy Respiratory: Yes COPD Cardiac: Yes High Cholesterol, Hypertension Neurological: No Genitourinary: No Gastrointestinal: No Musculoskeletal: Yes Arthritis Endocrine: No HEENT: Yes (WEARS GLASSES) Hearing Impairment: Denies Cancer: No Psychosocial: No Integumentary: No Blood Disorders: No Family Medical History No Pertinent Family Hx Physical Exam Vital Signs Vital Signs - First Documented 05/10/22 15:37 Pulse 99 Resp 16 B/P (MAP) 172/89 (116) Pulse Ox 96 O2 Delivery Room Air Capillary Refill : Height, Weight, BMI Height: 5'9.50" Weight: 195lbs. 0.0oz. [id number]; 29.84 BMI Method:Stated General Appearance: WD/WN, no apparent distress HEENT: PERRL/EOMI, normal ENT inspection, pharynx normal Neck: non-tender, full range of motion, supple, normal inspection Respiratory: chest non-tender, lungs clear, normal breath sounds, no respiratory distress, no accessory muscle use Cardiovascular: regular rate, rhythm, no edema, no murmur Gastrointestinal: normal bowel sounds, non tender, soft; No distended, No guarding, No rebound Back: normal inspection, no CVA tenderness Extremities: normal range of motion, non-tender, normal inspection, no pedal edema, no calf tenderness, normal capillary refill 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, no motor/sensory deficits, alert, normal mood/affect, oriented x 3 Crainal Nerves: normal hearing, normal speech, PERRL, other (Normal visual acuity, normal visual kimbrough) Coordination/Gait: normal finger to nose, normal gait Motor/Sensory: no motor deficit, no sensory deficit Skin: normal color, warm/dry Lymphatic: no adenopathy Stroke Onset of Symptoms Date of Onset of Symptoms: May 10, 2022 Time of Symptom Onset: 15:00 NIH Stroke Scale Assessment Select: Initial Level of Consciousness: 0=Alert (0), Level of Consciousness- Questions: 0=Answers both month/age (0), Gaze: Normal (0), Visual Kimbrough: 0=No visual loss (0), Facial Movement (Facial Paresis): 0=Normal symmetrical mnt (0), Motor Function-Arms Right: 0=No drift (0), Motor Function-Arms Left: 0=No drift (0), Motor Function-Legs Right: 0=No drift (0), Motor Function- Legs Left: 0=No drift (0), Limb Ataxia: 0=Absent (0), Sensory: 0=Normal:no loss (0), Best Language: 0=No aphasia (0), Dysarthria: 0=Normal (0), Extinction & Inattention: 0=No abnormality (0), Total: 0 Procedures/Interventions Suture Size: 4-0 Progress/Results/Core Measures Results/Orders Lab Results Laboratory Tests Test 05/10/22 15:38 05/10/22 16:58 05/10/22 18:10 Range/Units White Blood Count 7.4 4.3-11.0 10^3/uL Red Blood Count 4.55 4.30-5.52 10^6/uL Hemoglobin 15.1 13.3-17.7 g/dL Hematocrit 45 40-54 % Mean Corpuscular Volume 98 80-99 fL Mean Corpuscular Hemoglobin 33 25-34 pg Mean Corpuscular Hemoglobin Concent 34 32-36 g/dL Red Cell Distribution Width 12.2 10.0-14.5 % Platelet Count 225 130-400 10^3/uL Mean Platelet Volume 9.4 9.0-12.2 fL Immature Granulocyte % (Auto) 0 % Neutrophils (%) (Auto) 70 42-75 % Lymphocytes (%) (Auto) 17 12-44 % Monocytes (%) (Auto) 7 0-12 % Eosinophils (%) (Auto) 5 0-10 % Basophils (%) (Auto) 1 0-10 % Neutrophils # (Auto) 5.2 1.8-7.8 10^3/uL Lymphocytes # (Auto) 1.3 1.0-4.0 10^3/uL Monocytes # (Auto) 0.6 0.0-1.0 10^3/uL Eosinophils # (Auto) 0.3 0.0-0.3 10^3/uL Basophils # (Auto) 0.1 0.0-0.1 10^3/uL Immature Granulocyte # (Auto) 0.0 0.0-0.1 10^3/uL Prothrombin Time 13.0 12.2-14.7 SEC INR Comment 0.9 0.8-1.4 Activated Partial Thromboplast Time 35 24-35 SEC D-Dimer 0.75 H 0.00-0.49 UG/ML Sodium Level 135 135-145 MMOL/L Potassium Level 4.6 3.6-5.0 MMOL/L Chloride Level 100 98-107 MMOL/L Carbon Dioxide Level 24 21-32 MMOL/L Anion Gap 11 5-14 MMOL/L Blood Urea Nitrogen 17 7-18 MG/DL Creatinine 1.17 0.60-1.30 MG/DL Estimat Glomerular Filtration Rate 66 BUN/Creatinine Ratio 15 Glucose Level 124 H 70-105 MG/DL Calcium Level 10.2 H 8.5-10.1 MG/DL Corrected Calcium 9.9 8.5-10.1 MG/DL Total Bilirubin 0.5 0.1-1.0 MG/DL Aspartate Amino Transf (AST/SGOT) 22 5-34 U/L Alanine Aminotransferase (ALT/SGPT) 25 0-55 U/L Alkaline Phosphatase 74 40-136 U/L Troponin I < 0.028 <0.028 NG/ML Total Protein 7.5 6.4-8.2 GM/DL Albumin 4.4 3.2-4.5 GM/DL Urine Color YELLOW Urine Clarity CLEAR Urine pH 6.5 5-9 Urine Specific [place] 1.010 L 1.016-1.022 Urine Protein NEGATIVE NEGATIVE Urine Glucose (UA) NEGATIVE NEGATIVE Urine Ketones NEGATIVE NEGATIVE Urine Nitrite NEGATIVE NEGATIVE Urine Bilirubin NEGATIVE NEGATIVE Urine Urobilinogen 0.2 < = 1.0 MG/DL Urine Leukocyte Esterase NEGATIVE NEGATIVE Urine RBC (Auto) NEGATIVE NEGATIVE Urine RBC NONE /HPF Urine WBC NONE /HPF Urine Squamous Epithelial Cells RARE /HPF Urine Crystals NONE /LPF Urine Bacteria NEGATIVE /HPF Urine Casts NONE /LPF Urine Mucus NEGATIVE /LPF Urine Culture Indicated NO My Orders Orders - JANETTE GARCIA MD Ekg Tracing (05/10/22 15:30) Cbc With Automated Diff (05/10/22 15:38) Protime With Inr (05/10/22 15:38) Partial Thromboplastin Time (05/10/22 15:38) Comprehensive Metabolic Panel (05/10/22 15:38) Fibrin Degradation Products (05/10/22 15:38) Troponin I Jasper (05/10/22 15:38) Ua Culture If Indicated (05/10/22 15:38) Chest 1 View, Ap/Pa Only (05/10/22 15:38) Ekg Tracing (05/10/22 15:38) Accucheck Stat ONCE (05/10/22 15:38) Ed Iv/Invasive Line Start (05/10/22 15:38) Ed Iv/Invasive Line Start (05/10/22 15:38) Vital Signs Stroke Patient Q15M (05/10/22 15:38) Ct Head Wo-R/O Stroke (05/10/22 15:38) O2 (05/10/22 15:38) Intake & Output 06,14,22 (05/10/22 15:38) Monitor-Rhythm Ecg Trace Only (05/10/22 15:38) Dysphagia Screening Tool Q10MX1 (05/10/22 15:38) Iohexol Injection (Omnipaque 350 Mg/Ml 1 (05/10/22 16:30) Ns (Ivpb) (Sodium Chloride 0.9% Ivpb Bag (05/10/22 16:30) Troponin I Jasper (05/10/22 17:21) Aspirin Chewable Tablet (Baby Aspirin Ch (05/10/22 18:30) Clopidogrel Tablet (Plavix Tablet) (05/10/22 18:30) Medications Given in ED Current Medications Medications Dose Ordered Sig/Harlan Route Start Time Stop Time Status Last Admin Dose Admin Iohexol 100 ml ONCE ONCE IV 05/10/22 16:30 05/10/22 16:31 DC 05/10/22 16:42 75 ML Sodium Chloride 100 ml ONCE ONCE IV 05/10/22 16:30 05/10/22 16:31 DC 05/10/22 16:42 80 ML Vital Signs/I&O 05/10/22 15:37 Pulse 99 Resp 16 B/P (MAP) 172/89 (116) Pulse Ox 96 O2 Delivery Room Air Progress Progress Note : Progress Note 71yoM with above history coming in due to left sided numbness. ABCs intact and VSS on presentation. Patient had no objective weakness or numbness on the left side with an NIH of 0. Because of this, he is not a TPA candidate. CT head negative for anything acute. CTA head and neck with critical stenosis of the R carotid. I contacted stroke and discussed the case with Dr. Arias at 17:15. She stated these symptoms do fit the patients presenting complaint and recommended a vascular surgeon which we do not have one in our hospital. She then got disconnected for an emergency. I called back at 18:00 for follow up. She accepted the patient for transport and recommended giving aspirin and plavix. She stated he would not need any time sensitive intervention tonight, so ground transport would be ok. Initial ECG Impression Date: May 10, 2022 Initial ECG Impression Time: 15:35 Initial ECG Rate: 91 Initial ECG Rhythm: Normal Sinus Comment Narrow QRS, normal axis, no significant ST changes or T wave abnormality Diagnostic Imaging Diagonstic Imaging: CT (head without, CTA head and neck) Comments [facility] [place] NAME: TOYA CHAVEZ [facility] REC#: [id number] PT STATUS: REG ER : 1950 PHYSICIAN: JANETTE GARCIA MD ADMIT DATE: 05/10/22/ER Draft Date of Exam:05/10/22 CT HEAD WO-R/O STROKE CLINICAL INDICATION: Patient with left leg that went numb at 1500 hours. Patient has history of blood clot 30 years ago. EXAM: Axial CT scan of the brain performed without IV contrast. High-resolution axial CT brain images with sagittal and coronal reformations were also created. Auto Exposure Controls were utilized during the CT exam to meet ALARA standards for radiation dose reduction. COMPARISON: None. FINDINGS: There is no evidence of acute cerebral infarct, intracranial hemorrhage or gross mass effect. The brain parenchymal volume appears appropriate for patient's age. 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 There are low-density changes involving the left caudate region. There is normal jean-baptiste-white matter distinction. There is no significant midline shift or herniation. There is no evidence of hydrocephalus. The basal cisterns are unremarkable. The skull, extracranial soft tissue and orbits are unremarkable. The paranasal sinuses are unremarkable. Temporal bones show no significant abnormality. IMPRESSION: 1: There is no evidence of acute intracranial process. There is no dense vessel sign. 2: There is chronic small vessel ischemic disease. Results of this report were discussed with Dr. Janette Garcia on 05/10/2022 at 1555 hours. Dictated on workstation # [id number] Dict: 05/10/22 1548 Trans: 05/10/22 1601 [facility] [id number] Interpreted by: DHEERAJ GRAY MD Electronically signed by: [facility] [place] [place] NAME: TOYA CHAVEZ [facility] REC#: [id number] PT STATUS: REG ER : 1950 PHYSICIAN: JANETTE GARCIA MD ADMIT DATE: 05/10/22/ER Draft Date of Exam:05/10/22 CHEST 1 VIEW, AP/PA ONLY INDICATION: Stroke alert, left leg went numb while walking. Headache. TECHNIQUE: Single-view chest at 03:40 p.m. CORRELATION STUDY: 04/16/2022. FINDINGS: Heart size is mildly enlarged. Vasculature is overall within normal limits. The lungs are clear with no consolidating infiltrate. There is no significant effusion or pneumothorax. Rightward curvature of the thoracic spine with advanced degenerative change. IMPRESSION: 1. Cardiac enlargement without failure. Dictated on workstation # [id number] Dict: 05/10/22 1552 Trans: 05/10/22 1600 [id number] [id number] Interpreted by: OUMOU TRIVEDI DO Electronically signed by: [facility] [place] [place] NAME: TOYA CHAVEZ [facility] REC#: [id number] PT STATUS: REG ER : 1950 PHYSICIAN: JANETTE MANN ADMIT DATE: 05/10/22/ER Signed Date of Exam:05/10/22 CT ANGIO HEAD/NECK INDICATION: Left arm and leg numbness and headache and pain in eyes. TECHNIQUE: Contiguous noncontrast images were obtained from the skull base through the vertex. After intravenous contrast administration, helical CT angiography of the neck was performed. Source data was reformatted into 3D MIP projections. Delayed post contrast acquisition was also obtained. Auto Exposure Controls were utilized during the CT exam to meet ALARA standards for radiation dose reduction. COMPARISON: There is no prior CTA head and neck for comparison. Comparison made to noncontrast CT done earlier the same day. CTA NECK FINDINGS: Note is made of diffuse emphysematous changes in the lung apices. The thoracic aortic arch is patent and normal in caliber. There is mild plaquing of the great vessel origins. The common carotid arteries are patent bilaterally. There is calcified plaquing in the carotid bifurcations on both sides. On the left side, the degree of narrowing is less than 50%. On the right side, there is irregular calcified plaquing with about 90% stenosis. More distal portions of the internal carotids are unremarkable. The vertebral arteries are patent on both sides. 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 There is some densely calcified plaque at the left vertebral origin with apparent significant left vertebral artery origin stenosis. CTA HEAD FINDINGS: The distal left vertebral artery is patent with some minor plaquing, left vertebral artery is dominant. 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 The carotid siphons show some mild eccentric plaquing. The distal internal carotid arteries, anterior cerebral arteries, and middle cerebral arteries are patent. There is no major vessel occlusion or aneurysmal disease. The dural venous sinuses are patent. IMPRESSION: CTA neck demonstrates high-grade stenosis of the right internal carotid at its origin with densely calcified plaquing. There is moderate stenosis of the left internal carotid origin. Both vertebrals are patent with the left dominant. The left vertebral artery does show a high-grade stenosis at its origin. CTA head demonstrates no major vessel stenosis or occlusion or aneurysmal disease. Dictated by: Dictated on workstation # [id number] Dict: 05/10/22 1646 Trans: 05/10/22 1706 AS6 [id number] Interpreted by: LUIS DRAKE MD Electronically signed by: LUIS DRAKE MD 05/10/221705 Departure Impression Primary Impression: Left sided numbness Additional Impression: Carotid artery stenosis Qualified Codes: I65.21 - Occlusion and stenosis of right carotid artery Disposition: XFER SHT-TRM HOSP Condition: Stable Admissions Decision to Admit/Date: May 10, 2022 Time/Decision to Admit Time: 17:20 Transfer Transfer Reason: Exceeds level of care Time Spoke to Accepting Phy: 18:[address] Arias accepted for transfer to her service. Transfer Facility: [facility] Method of Transfer: EMS Departure-Patient Inst. Referrals: BRIAN NIX DO (PCP/Family) Primary Care Physician JANETTE GARCIA MD May 10, 2022 15:42
[2022-05-10 15:51] LABS: BASOPHILS # (AUTO) 0.1 10^3/uL (0.0-0.1); BASOPHILS % (AUTO) 1 % (0-10); EOSINOPHILS # (AUTO) 0.3 10^3/uL (0.0-0.3); EOSINOPHILS % (AUTO) 5 % (0-10); HEMATOCRIT 45 % (40-54); HEMOGLOBIN 15.1 g/dL (13.3-17.7); LYMPHOCYTES # (AUTO) 1.3 10^3/uL (1.0-4.0); LYMPHOCYTES % (AUTO) 17 % (12-44); MEAN CORPUSCULAR HEMOGLOBIN 33 pg (25-34); MEAN CORPUSCULAR HGB CONC 34 g/dL (32-36); MEAN CORPUSCULAR VOLUME 98 fL (80-99); MEAN PLATELET VOLUME 9.4 fL (9.0-12.2); MONOCYTES # (AUTO) 0.6 10^3/uL (0.0-1.0); MONOCYTES % (AUTO) 7 % (0-12); NEUTROPHILS # (AUTO) 5.2 10^3/uL (1.8-7.8); NEUTROPHILS % (AUTO) 70 % (42-75); PLATELET COUNT 225 10^3/uL (130-400); WHITE BLOOD COUNT 7.4 10^3/uL (4.3-11.0)
[2022-05-10 15:52] LABS: ALBUMIN 4.4 GM/DL (3.2-4.5)
[2022-05-10 15:53] LABS: CHLORIDE 100 MMOL/L (98-107); POTASSIUM 4.6 MMOL/L (3.6-5.0); SODIUM 135 MMOL/L (135-145)
[2022-05-10 15:54] LABS: CALCIUM 10.2 MG/DL (8.5-10.1)
[2022-05-10 15:55] LABS: GLUCOSE 124 MG/DL (70-105); TOTAL PROTEIN 7.5 GM/DL (6.4-8.2)
[2022-05-10 15:56] LABS: CARBON DIOXIDE 24 MMOL/L (21-32)
[2022-05-10 15:57] LABS: BILIRUBIN,TOTAL 0.5 MG/DL (0.1-1.0)
[2022-05-10 15:58] LABS: ALKALINE PHOSPHATASE 74 U/L (40-136); CREATININE SERUM 1.17 MG/DL (0.60-1.30); GFR ESTIMATED 66
[2022-05-10 16:00] LABS: BUN/CREATININE RATIO 15
[2022-05-10 16:01] LABS: ALANINE AMINOTRANSFERASE 25 U/L (0-55)
--- NOTE | 2022-05-10 16:01 | Diagnostic Imaging Report ---
CLINICAL INDICATION: Patient with left leg that went numb at 1500 hours. Patient has history of blood clot 30 years ago. EXAM: Axial CT scan of the brain performed without IV contrast. High-resolution axial CT brain images with sagittal and coronal reformations were also created. Auto Exposure Controls were utilized during the CT exam to meet ALARA standards for radiation dose reduction. COMPARISON: None. FINDINGS: There is no evidence of acute cerebral infarct, intracranial hemorrhage or gross mass effect. The brain parenchymal volume appears appropriate for patient's age. 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 There are low-density changes involving the left caudate region. There is normal jean-baptiste-white matter distinction. There is no significant midline shift or herniation. There is no evidence of hydrocephalus. The basal cisterns are unremarkable. The skull, extracranial soft tissue and orbits are unremarkable. The paranasal sinuses are unremarkable. Temporal bones show no significant abnormality. IMPRESSION: 1: There is no evidence of acute intracranial process. There is no dense vessel sign. 2: There is chronic small vessel ischemic disease. Results of this report were discussed with XAVI Puente on 05/10/2022 at 1555 hours. Dictated by: Dictated on workstation # [id number]
--- NOTE | 2022-05-10 16:01 | Diagnostic Imaging Report ---
INDICATION: Stroke alert, left leg went numb while walking. Headache. TECHNIQUE: Single-view chest at 03:40 p.m. CORRELATION STUDY: 04/16/2022. FINDINGS: Heart size is mildly enlarged. Vasculature is overall within normal limits. The lungs are clear with no consolidating infiltrate. There is no significant effusion or pneumothorax. Rightward curvature of the thoracic spine with advanced degenerative change. IMPRESSION: 1. Cardiac enlargement without failure. Dictated by: Dictated on workstation # [id number]
[2022-05-10 16:22] LABS: FIBRIN DEGRADATION PRODUCTS 0.75 UG/ML (0.00-0.49); INR 0.9 (0.8-1.4)
[2022-05-10] MEDS: NS 100 ML (IVPB) BAG IV ONE (16:42)
[2022-05-10] MEDS: IOHEXOL 350 MG/ML 100 ML (OMNIPAQUE 350) VIAL IV ONE (16:42)
--- NOTE | 2022-05-10 17:02 | Diagnostic Imaging Report ---
INDICATION: Left arm and leg numbness and headache and pain in eyes. TECHNIQUE: Contiguous noncontrast images were obtained from the skull base through the vertex. After intravenous contrast administration, helical CT angiography of the neck was performed. Source data was reformatted into 3D MIP projections. Delayed post contrast acquisition was also obtained. Auto Exposure Controls were utilized during the CT exam to meet ALARA standards for radiation dose reduction. COMPARISON: There is no prior CTA head and neck for comparison. Comparison made to noncontrast CT done earlier the same day. CTA NECK FINDINGS: Note is made of diffuse emphysematous changes in the lung apices. The thoracic aortic arch is patent and normal in caliber. There is mild plaquing of the great vessel origins. The common carotid arteries are patent bilaterally. There is calcified plaquing in the carotid bifurcations on both sides. On the left side, the degree of narrowing is less than 50%. On the right side, there is irregular calcified plaquing with about 90% stenosis. More distal portions of the internal carotids are unremarkable. The vertebral arteries are patent on both sides. 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 There is some densely calcified plaque at the left vertebral origin with apparent significant left vertebral artery origin stenosis. CTA HEAD FINDINGS: The distal left vertebral artery is patent with some minor plaquing, left vertebral artery is dominant. 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 The carotid siphons show some mild eccentric plaquing. The distal internal carotid arteries, anterior cerebral arteries, and middle cerebral arteries are patent. There is no major vessel occlusion or aneurysmal disease. The dural venous sinuses are patent. IMPRESSION: CTA neck demonstrates high-grade stenosis of the right internal carotid at its origin with densely calcified plaquing. There is moderate stenosis of the left internal carotid origin. Both vertebrals are patent with the left dominant. The left vertebral artery does show a high-grade stenosis at its origin. CTA head demonstrates no major vessel stenosis or occlusion or aneurysmal disease. Dictated by: Dictated on workstation # [id number]
[2022-05-10 17:04] LABS: BILIRUBIN,URINE NEGATIVE (NEGATIVE); CLARITY,URINE CLEAR; COLOR,URINE YELLOW; GLUCOSE, URINE (UA) NEGATIVE (NEGATIVE); KETONES,URINE NEGATIVE (NEGATIVE); LEUKOCYTE ESTERASE ,URINE NEGATIVE (NEGATIVE); NITRITE,URINE NEGATIVE (NEGATIVE); PH,URINE 6.5 (5-9); PROTEIN,URINE NEGATIVE (NEGATIVE)
[2022-05-10 17:13] LABS: BACTERIA,URINE NEGATIVE /HPF; SQUAMOUS EPITHELIAL CELL,UR RARE /HPF
[2022-05-10] MEDS: ASPIRIN 81 MG CHEW (CHILDREN'S ASA) PO ONE (18:48)
[2022-05-10] MEDS: CLOPIDOGREL 300 MG (PLAVIX) TABLET PO ONE (18:48)
[2022-05-10 19:22] VITALS: BP 135/96
== END 2022-05-10 19:22 | disposition short-term general hospital (02) ==
LOC: EDUNIT# 15:23 → ER 15:25
DX: I65.21 Occlusion and stenosis of right carotid artery (principal); Z87.891 Personal history of nicotine dependence
CPT/HCPCS: 36415; 70450; 70496; 70498; 71045; 80053; 81000; 82947; 84484; 85025; 85379; 85610; 85730; 93005; 93041

== ENCOUNTER → 2022-05-30 | Outpatient (CLI) | payer MEDICARE | LOC: CARD 10:30 | PROVIDERS: ATTEND Internal Medicine Cardiovascular Disease | DX: I10 Essential (primary) hypertension (principal); I25.10 Atherosclerotic heart disease of native coronary artery without angina pectoris | CPT/HCPCS: 93306 ==

== ENCOUNTER → 2022-06-04 | Outpatient (CLI) | payer MEDICARE ==
[~2022-06-04] VITALS: Ht 170 cm; Wt 91.0 kg
[~2022-06-04] MED LIST changes: +REGADENOSON 0.4 MG/5 ML SYR (LEXISCAN) IV ONE
[2022-06-04 08:03] LABS: ALBUMIN 4.4 GM/DL (3.2-4.5)
[2022-06-04 08:04] LABS: CALCIUM 9.9 MG/DL (8.5-10.1)
[2022-06-04 08:05] LABS: TOTAL PROTEIN 7.6 GM/DL (6.4-8.2)
[2022-06-04 08:07] LABS: BILIRUBIN,TOTAL 0.6 MG/DL (0.1-1.0)
[2022-06-04 08:09] LABS: CREATININE SERUM 1.35 MG/DL (0.60-1.30)
[2022-06-04] MEDS: CATHETER FLUSH 10 ML SYR IVP PRN ×2 (08:10→09:50)
[2022-06-04 09:39] VITALS: BP 153/85
--- NOTE | 2022-06-04 11:14 | Cardiology Stress Test Report ---
Stress Test Report Date of Procedure/Referring: Date of Procedure: Jun 04, 2022 PCP Portillo Nix DO Admitting Physician Admitting Physician: Attending Physician: Chriss Caceres MD Indications: CP Baseline Heart Rate: 85 Baseline Blood Pressure: Blood Pressure Systolic: 153 Blood Pressure Diastolic: 85 Baseline Vitals Vital Signs Date Time Temp Pulse Resp B/P (MAP) Pulse Ox O2 Delivery O2 Flow Rate FiO2 06/04/22 09:39 84 153/85 (107) 96 Room Air Baseline EKG: Baseline EKG: NSR Summary After explaining the procedure to the patient, he signed a consent and then brought to the stress nuclear laboratory. Patient received 0.4 mg Lexiscan for stress test, ECG, heart rate and blood pressure were monitored continuously. Resting and stress dose of radio tracer were injected, imaging was acquired and reviewed in short axis, horizontal long axis and vertical long axis views. TID: 1.11 SSS: 10 SDS: 3 EF: 63 1. Patient tolerated Lexiscan well 2. Diaphragmatic attenuation with reversible ischemia involving the apical segment anterior apical segment and inferoapical wall 3. Normal left ventricular size with ejection fraction 63% Copy Copies To 1: PORTILLO NIX BASHAR J MD Jun 04, 2022 11:14
== END ==
LOC: CARD 08:30
PROVIDERS: ATTEND Internal Medicine Cardiovascular Disease
DX: I25.10 Atherosclerotic heart disease of native coronary artery without angina pectoris (principal); I10 Essential (primary) hypertension; E78.2 Mixed hyperlipidemia
CPT/HCPCS: 78452; 80053; 80061; 93017; A9502; 36415

== ENCOUNTER 2022-06-13 08:36 | Day surgery (SDC) | payer MEDICARE, OTHER ==
[2022-06-13] VITALS (11 sets, daily range): BP systolic 105–156; BP diastolic 70–93
[~2022-06-13] VITALS: Ht 171.5 cm; Wt 90.6 kg
[~2022-06-13 08:36] MED LIST changes: -REGADENOSON 0.4 MG/5 ML SYR (LEXISCAN) IV ONE
[2022-06-13] MEDS ORDERED: HEParin (CATH LAB) 2,000 ML IV ONE (08:53)
[2022-06-13] MEDS ORDERED: NS IV 1000 ML 1,000 ML ONE (08:53)
[2022-06-13] MEDS ORDERED: LIDOCAINE 1% INJ 20 ML VIAL ONE (08:53)
[2022-06-13] MEDS ORDERED: NS IV 1000 ML 1,000 ML IV SCH ×2 (09:00→10:45)
--- NOTE | 2022-06-13 09:19 | Diagnostic Imaging Report ---
CLINICAL INDICATION: Patient with coronary artery disease claudication. EXAM: Portable chest x-ray upright view. COMPARISON: Chest x-ray dated 05/10/2022. FINDINGS: Stable lobulated left hemidiaphragm. Lungs/pleura: Lungs are clear. There is no pneumothorax. There is no pleural effusion. Mediastinum: Unremarkable. Pulmonary vasculature: Unremarkable. Heart: Cardiac silhouette is within normal limits for portable projection. Bones/extrathoracic soft tissue: There is left curvature of the thoracolumbar spine. There are degenerative spurs involving the spine. IMPRESSION: There is no radiographic evidence of acute cardiopulmonary process. Dictated by: Dictated on workstation # [id number]
[2022-06-13 09:37] LABS: HEMATOCRIT 47 % (40-54); HEMOGLOBIN 15.7 g/dL (13.3-17.7); MEAN CORPUSCULAR HEMOGLOBIN 33 pg (25-34); MEAN CORPUSCULAR HGB CONC 33 g/dL (32-36); MEAN CORPUSCULAR VOLUME 98 fL (80-99); MEAN PLATELET VOLUME 9.2 fL (9.0-12.2); PLATELET COUNT 230 10^3/uL (130-400); WHITE BLOOD COUNT 9.4 10^3/uL (4.3-11.0)
[2022-06-13 09:38] LABS: BILIRUBIN,URINE NEGATIVE (NEGATIVE); CLARITY,URINE CLEAR; COLOR,URINE YELLOW; GLUCOSE, URINE (UA) NEGATIVE (NEGATIVE); KETONES,URINE NEGATIVE (NEGATIVE); LEUKOCYTE ESTERASE ,URINE 1+ (NEGATIVE); NITRITE,URINE NEGATIVE (NEGATIVE); PH,URINE 6.5 (5-9); PROTEIN,URINE NEGATIVE (NEGATIVE)
--- NOTE | 2022-06-13 09:42 | Cardiac Procedure Note-CS/ASA ---
Pre-Procedure Note Pre-Op Procedure Note Date of Available H&P: Jun 05, 2022 Date H&P Reviewed: Jun 13, 2022 Time H&P Reviewed: 09:41 History & Physical: H&P Reviewed, Patient Examed, No changes noted Pre-Operative Diagnosis: CAD, PAD Conscious Sedation Pre-Proced Time 09:42 ASA Score 3 For ASA 3 and 4: Consider anesthesia and medical clearance. Also, for patients with a history of failed moderate sedation consider anesthesia. Airway Lungs Heart ASA score ASA 1: a normal healthy patient ASA 2: a patient with a mild systemic disease (mid diabetes, controlled hypertension, obesity ASA 3: a patient with a severe systemic disease that limits activity (angina, COPD, prior Myocardial infarction) ASA 4: a patient with an incapacitating disease that is a constant threat to life (CHF, renal failure) ASA 5: a moribund patient not expected to survive 24 hrs. (ruptured aneurysm) ASA 6: a declared brain- patient whose organs are being harvested. For emergent operations, add the letter E after the classification Mallampati Classification Grade 3 Sedation Plan Analgesia, Amnesia, Plan communicated to team members, Discussed options with patient/fam, Discussed risks with patient/fam The patient is an appropriate candidate to undergo the planned procedure, sedation, and anesthesia. The patient immediately re-assessed prior to indication. KEIRA MANCILLA MD Jun 13, 2022 09:42
[2022-06-13] MEDS ORDERED: fentaNYL INJ 100 MCG/2 ML AMP ONE (09:44)
[2022-06-13] MEDS ORDERED: MIDAZOLAM 5 MG/5 ML (VERSED) VIAL ONE (09:44)
[2022-06-13 09:48] LABS: BACTERIA,URINE NEGATIVE /HPF; WBC,URINE 0-2 /HPF
[2022-06-13 09:49] LABS: INR 0.9 (0.8-1.4); PROTHROMBIN TIME PATIENT 12.5 SEC (12.2-14.7)
[2022-06-13 09:53] LABS: ALANINE AMINOTRANSFERASE 28 U/L (0-55); ALBUMIN 4.6 GM/DL (3.2-4.5); ALKALINE PHOSPHATASE 89 U/L (40-136); BILIRUBIN,TOTAL 0.7 MG/DL (0.1-1.0); BUN/CREATININE RATIO 20; CALCIUM 10.1 MG/DL (8.5-10.1); CARBON DIOXIDE 26 MMOL/L (21-32); CHLORIDE 101 MMOL/L (98-107); CHOLESTEROL 182 MG/DL (< 200); CREATININE SERUM 1.23 MG/DL (0.60-1.30); GFR ESTIMATED 62; GLUCOSE 97 MG/DL (70-105); HDL CHOLESTEROL 50 MG/DL (40-60); POTASSIUM 4.6 MMOL/L (3.6-5.0); SODIUM 137 MMOL/L (135-145); TRIGLYCERIDES 74 MG/DL (<150); VLDL CHOLESTEROL 15 MG/DL (5-40)
[2022-06-13] MEDS ORDERED: CLOP75TA28 PO (09:58)
[2022-06-13] MEDS ORDERED: ASPI-999 PO (09:58)
[2022-06-13] MEDS ORDERED: CALC-823 PO (09:58)
[2022-06-13] MEDS ORDERED: PANT20TA18 PO (09:58)
[2022-06-13] MEDS ORDERED: LISI10TA25 PO (09:58)
[2022-06-13] MEDS ORDERED: AMLO-251 PO (09:58)
[2022-06-13] MEDS ORDERED: ATOR40TA70 PO (09:58)
[2022-06-13] MEDS ORDERED: CARV3.122 PO (09:58)
[2022-06-13] MEDS ORDERED: ACET325T38 PO (09:58)
[2022-06-13] MEDS ORDERED: GLYC10.7 IH (09:58)
[2022-06-13] MEDS ORDERED: PATIENT MAY USE OWN MEDS, ALL PO SCH (10:45)
--- NOTE | 2022-06-13 10:49 | Cardiac Cath Report ---
Cardiac Cath Report Physician (s)/Mine Safety Engineer (s) Physician KEIRA MANCILLA MD Pre-Procedure Diagnosis Pre-Procedure Diagnosis: CAD, PAD Post-Procedure Note Procedure Start Date: Jun 13, 2022 Name of Procedure: Left heart catheterization Aortic arch angiogram Abdominal aortogram Bilateral lower extremities runoff First order Findings/Procedure Note PROCEDURE NOTE: 72-year-old gentleman with history of hypertension, hyperlipidemia, has been having claudication, had an abnormal stress test, he was scheduled for peripheral angiogram and cardiac catheterization. After explaining the procedure to the patient, all pros and cons were explained, all questions were answered. The patient signed the consent and then he was placed on the cardiac catheterization laboratory. Groin was prepped SL fashion local anesthesia was used. Sheath placed in the left femoral artery artery. I had difficulties advancing the J-wire through the iliac artery on the left, I used Dheeraj right catheter with a Storq and advanced it to the bifurcation and then advanced the Storq wire in the right common iliac artery advance the catheter then did runoff to the right leg using the Dheeraj right catheter then I retracted the catheter and advanced the Storq wire up to the ascending aorta crossed the aortic valve and advanced Dheeraj right catheter to the left ventri cular cavity, pressure was measured no left ventriculogram was done, pullback LV to aorta was done, then I engaged the right and left coronary system and angiogram was done. I noticed patient has severe proximal left main coronary artery stenosis he will need referral for bypass surgery. I elected to evaluate his aortic arch and his abdominal aorta due to the presence of aneurysm in the iliac artery. At the end of the procedure the sheath was removed. Closure device was deployed FINDINGS: Hemodynamics LV 115/14, end-diastolic pressure 14 Aorta 118/64 mean of 86 ANATOMY: Left Main has severe proximal stenosis Left Anterior Descending is slightly tortuous with mild disease nonobstructive disease Left Circumflex has mild disease nonobstructive disease Right Coronary Artery is moderate in size with 50% proximal stenosis, dominant artery LV Gram was not done, pressure was measured Aortic arch angiogram was done with a pigtail catheter showing normal aortic arch, no dissection or aneurysm. Calcified right brachiocephalic artery, left carotid and left subclavian artery Abdominal aortogram showed atherosclerotic plaques. No dissection or aneurysm, renal arteries has mild stenosis, nonobstructive disease, SMA and GREGG are normal. Left lower extremity runoff: Done with the injection through the sheath which s howed atherosclerotic plaque in the SFA, mild to moderate disease nonobstructive disease with three-vessel runoff down to the foot Right lower extremity: Common iliac artery has an aneurysm Common femoral artery has smaller aneurysm Left SFA is totally occluded at the midportion reconstructed by collaterals at the the distal SFA CONCLUSION: 1. Severe proximal left main coronary artery stenosis otherwise mild to moderate disease nonobstructive disease 2. Normal left ventricular end-diastolic pressure 3. Normal aortic arch with calcified vessels of the neck. Nonobstructive disease 4. Total occlusion of the right SFA at the midportion reconstructed by collaterals 5. 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 Mild to moderate disease at the left SFA. DISCUSSION AND RECOMMENDATION: Patient will be referred for evaluation for CABG, will consider intervention on the SFA and might require covered stent or surgery for the right common iliac artery Anesthesia Type: Conscious Sedation Estimated blood loss (mL): 15 ml Contrast Amount: 72 ml Total Radiation Dose: 489 mGy Post-Procedure Diagnosis Post-operative diagnosis: Coronary artery disease Peripheral arterial disease Claudication Hypertension KEIRA MANCILLA MD Jun 13, 2022 10:49
[2022-06-13] MEDS ORDERED: ATOR80TA64 PO (10:58)
--- NOTE | 2022-06-13 10:59 | Discharge Inst-Post CATH ---
Discharge Inst-CATH/EP Problems Reviewed?: Yes Post Cardiac Cath/EP D/C Inst Follow Up/Plan Appointment with Dr. Caceres's office in 2 to 4 weeks <b>CARDIAC CATH/EP PROCEDURE DISCHARGE INSTRUCTIONS</b> ACTIVITY * Go Home directly and rest. * Limit activity of the leg (or wrist if it was used) for 7 days including aer obics, swimming, jogging, bicycling, etc. * Restrict stair-climbing for 7 days if possible, if not, climb up with your non-cath leg, then bring together on the same step. * Avoid lifting, pushing, pulling or excessive movement of the affected extremi ty for 7 days. * Customary sexual activity may be resumed after 2 days-use caution not to use a position that strains or causes pain to the affected extremity. * No driving for 24 hours. * NO SMOKING. * Avoid straining for bowel movements for 7 days. * Gentle walking on level ground is allowed. * Returning to work will depend on the type of procedure and the results. Your doctor will discuss this with you. CALL YOUR DOCTOR FOR ANY OF THE FOLLOWING: *If bleeding from the puncture site occurs- Apply gentle pressure to site with clean cloth and call your doctor or EMS. * If a knot or lump forms under the skin, increases in size, or causes pain. * If bruising appears to be worsening or moving further down your leg instead of disappearing. * Temperature above 101 F. CARE OF YOUR GROIN INCISION; * Bruising or purple discoloration of the skin near the puncture site is common. * You may shower only, no bathtub bathing for 5 days. Be careful to avoid slipping as your leg may feel stiff. * If a closure device was used on your femoral artery, please see the attached guide regarding care of the device and your leg. * Leave dressing on FOR 24 hours. CARE OF YOUR WRIST INCISION; * Bruising or purple discoloration of the skin near the puncture site is common. * You may shower. * DO NOT submerge wrist. * Leave dressing on FOR 24 hours. KEIRA CACERES MD Jun 13, 2022 10:59
== END 2022-06-13 15:30 ==
LOC: CATH 08:36 → SDC 11:05 → CATH 15:30
PROVIDERS: ATTEND Internal Medicine Cardiovascular Disease
DX: I25.10 Atherosclerotic heart disease of native coronary artery without angina pectoris (principal); I72.3 Aneurysm of iliac artery; I72.4 Aneurysm of artery of lower extremity; I70.211 Atherosclerosis of native arteries of extremities with intermittent claudication, right leg; I10 Essential (primary) hypertension; Z79.899 Other long term (current) drug therapy; Z87.891 Personal history of nicotine dependence; I65.21 Occlusion and stenosis of right carotid artery; J44.9 Chronic obstructive pulmonary disease, unspecified; E78.2 Mixed hyperlipidemia
CPT/HCPCS: 36221; 36245; 71045; 75625; 75716; 80053; 80061; 81000; 85027; 85610; 85730; 87081; 93005; 93458; C1760; C1769; C1894; 36415

== ENCOUNTER → 2023-06-12 | Outpatient (CLI) | payer MEDICARE ==
[~2023-06-12] MED LIST changes: +ALBU8.5H6 IH; +AMLO-251 PO; +ASPI-999 PO; +ATOR40TA70 PO; +ATOR80TA64 PO; +CALC-823 PO; +CARV3.122 PO; +CLOP75TA28 PO; +LISI10TA25 PO; +PANT20TA18 PO
[2023-06-12 09:08] LABS: BASOPHILS # (AUTO) 0.1 10^3/uL (0.0-0.1); BASOPHILS % (AUTO) 0 % (0-10); EOSINOPHILS % (AUTO) 0 % (0-10); HEMATOCRIT 46 % (40-54); HEMOGLOBIN 15.2 g/dL (13.3-17.7); LYMPHOCYTES # (AUTO) 0.8 10^3/uL (1.0-4.0); LYMPHOCYTES % (AUTO) 3 % (12-44); MEAN CORPUSCULAR HEMOGLOBIN 32 pg (25-34); MEAN CORPUSCULAR HGB CONC 33 g/dL (32-36); MEAN CORPUSCULAR VOLUME 97 fL (80-99); MEAN PLATELET VOLUME 9.3 fL (9.0-12.2); MONOCYTES # (AUTO) 1.7 10^3/uL (0.0-1.0); MONOCYTES % (AUTO) 6 % (0-12); NEUTROPHILS # (AUTO) 23.8 10^3/uL (1.8-7.8); NEUTROPHILS % (AUTO) 90 % (42-75); PLATELET COUNT 182 10^3/uL (130-400); WHITE BLOOD COUNT 26.5 10^3/uL (4.3-11.0)
[2023-06-12 09:28] LABS: CREATININE SERUM 1.38 MG/DL (0.60-1.30); POTASSIUM 4.3 MMOL/L (3.6-5.0)
[2023-06-12 09:44] LABS: BAND NEUTROPHILS 0 %; BASOPHILS % (MANUAL) 0 %; EOSINOPHILS % (MANUAL) 0 %; LYMPHOCYTES % (MANUAL) 2 %; MONOCYTES % (MANUAL) 7 %; NEUTROPHILS % (MANUAL) 91 %; RBC MORPH NORMAL
--- NOTE | 2023-06-12 10:10 | Diagnostic Imaging Report ---
EXAMINATION: Chest 2 view HISTORY: COUGH COPD COMPARISON: 06/13/2022 FINDINGS: The lungs are clear without edema or pneumonia. No pleural effusion or pneumothorax. Heart size is normal. IMPRESSION: 1. Clear lungs. Dictated by: Dictated on workstation # [id number]
== END ==
LOC: RAD 08:50
PROVIDERS: ATTEND Family Medicine
DX: J44.9 Chronic obstructive pulmonary disease, unspecified (principal)
CPT/HCPCS: 36415; 71046; 80048; 85007; 85027; 87636

== ENCOUNTER → 2023-06-13 | Outpatient (CLI) | payer MEDICARE ==
[2023-06-13 09:03] LABS: BASOPHILS % (AUTO) 0 % (0-10); EOSINOPHILS # (AUTO) 0.1 10^3/uL (0.0-0.3); EOSINOPHILS % (AUTO) 1 % (0-10); HEMATOCRIT 45 % (40-54); HEMOGLOBIN 14.6 g/dL (13.3-17.7); LYMPHOCYTES # (AUTO) 0.8 10^3/uL (1.0-4.0); LYMPHOCYTES % (AUTO) 5 % (12-44); MEAN CORPUSCULAR HEMOGLOBIN 32 pg (25-34); MEAN CORPUSCULAR HGB CONC 33 g/dL (32-36); MEAN CORPUSCULAR VOLUME 97 fL (80-99); MEAN PLATELET VOLUME 9.3 fL (9.0-12.2); MONOCYTES # (AUTO) 0.7 10^3/uL (0.0-1.0); MONOCYTES % (AUTO) 5 % (0-12); NEUTROPHILS # (AUTO) 13.6 10^3/uL (1.8-7.8); NEUTROPHILS % (AUTO) 89 % (42-75); PLATELET COUNT 186 10^3/uL (130-400); WHITE BLOOD COUNT 15.2 10^3/uL (4.3-11.0)
== END ==
LOC: LAB 08:50
PROVIDERS: ATTEND Family Medicine
DX: J44.9 Chronic obstructive pulmonary disease, unspecified (principal); R61 Generalized hyperhidrosis
CPT/HCPCS: 36415; 85025

== ENCOUNTER → 2023-06-14 | Outpatient (CLI) | payer MEDICARE ==
[2023-06-14 09:12] LABS: BASOPHILS % (AUTO) 1 % (0-10); EOSINOPHILS # (AUTO) 0.2 10^3/uL (0.0-0.3); EOSINOPHILS % (AUTO) 2 % (0-10); HEMATOCRIT 45 % (40-54); HEMOGLOBIN 14.9 g/dL (13.3-17.7); LYMPHOCYTES # (AUTO) 0.9 10^3/uL (1.0-4.0); LYMPHOCYTES % (AUTO) 11 % (12-44); MEAN CORPUSCULAR HEMOGLOBIN 33 pg (25-34); MEAN CORPUSCULAR HGB CONC 33 g/dL (32-36); MEAN CORPUSCULAR VOLUME 98 fL (80-99); MEAN PLATELET VOLUME 9.1 fL (9.0-12.2); MONOCYTES # (AUTO) 0.7 10^3/uL (0.0-1.0); MONOCYTES % (AUTO) 9 % (0-12); NEUTROPHILS # (AUTO) 6.4 10^3/uL (1.8-7.8); NEUTROPHILS % (AUTO) 78 % (42-75); PLATELET COUNT 179 10^3/uL (130-400); WHITE BLOOD COUNT 8.2 10^3/uL (4.3-11.0)
== END ==
LOC: LAB 08:59
PROVIDERS: ATTEND Family Medicine
DX: D72.829 Elevated white blood cell count, unspecified (principal); J44.9 Chronic obstructive pulmonary disease, unspecified; J96.90 Respiratory failure, unspecified, unspecified whether with hypoxia or hypercapnia
CPT/HCPCS: 36415; 85025

== ENCOUNTER 2023-09-03 13:24 | Emergency (ER) | payer MEDICARE ==
[~2023-09-03] VITALS: Ht 170 cm; Wt 88.4 kg
[2023-09-03 14:27] LABS: BASOPHILS % (AUTO) 0 % (0-10); EOSINOPHILS # (AUTO) 0.2 10^3/uL (0.0-0.3); EOSINOPHILS % (AUTO) 2 % (0-10); HEMATOCRIT 42 % (40-54); HEMOGLOBIN 13.7 g/dL (13.3-17.7); LYMPHOCYTES # (AUTO) 0.9 10^3/uL (1.0-4.0); LYMPHOCYTES % (AUTO) 10 % (12-44); MEAN CORPUSCULAR HEMOGLOBIN 32 pg (25-34); MEAN CORPUSCULAR HGB CONC 33 g/dL (32-36); MEAN CORPUSCULAR VOLUME 99 fL (80-99); MEAN PLATELET VOLUME 9.7 fL (9.0-12.2); MONOCYTES % (AUTO) 10 % (0-12); NEUTROPHILS # (AUTO) 7.6 10^3/uL (1.8-7.8); NEUTROPHILS % (AUTO) 78 % (42-75); PLATELET COUNT 235 10^3/uL (130-400); WHITE BLOOD COUNT 9.8 10^3/uL (4.3-11.0)
[2023-09-03] MEDS ORDERED: NS IV 1000 ML 1,000 ML IV SCH (14:30)
[2023-09-03 14:32] LABS: POTASSIUM 4.1 MMOL/L (3.6-5.0)
[2023-09-03 14:33] LABS: CALCIUM 9.5 MG/DL (8.5-10.1)
[2023-09-03 14:34] LABS: TOTAL PROTEIN 7.5 GM/DL (6.4-8.2)
[2023-09-03 14:36] LABS: BILIRUBIN,TOTAL 0.8 MG/DL (0.1-1.0)
[2023-09-03 14:38] LABS: CREATININE SERUM 1.16 MG/DL (0.60-1.30)
[2023-09-03 14:52] LABS: BACTERIA,URINE LARGE /HPF; BILIRUBIN,URINE NEGATIVE (NEGATIVE); CLARITY,URINE CLEAR; COLOR,URINE YELLOW; GLUCOSE, URINE (UA) NEGATIVE (NEGATIVE); KETONES,URINE NEGATIVE (NEGATIVE); LEUKOCYTE ESTERASE ,URINE 2+ (NEGATIVE); NITRITE,URINE POSITIVE (NEGATIVE); PH,URINE 5.5 (5-9); PROTEIN,URINE 1+ (NEGATIVE)
[2023-09-03] MEDS ORDERED: HOLD METFORMIN - RECEIVED CONTRAST 20 ML VIAL IV SCH (15:00)
[2023-09-03] MEDS ORDERED: IOHEXOL 350 MG/ML 100 ML (OMNIPAQUE 350) VIAL IV ONE (15:00)
[2023-09-03] MEDS ORDERED: NS 100 ML (IVPB) BAG IV ONE (15:00)
--- NOTE | 2023-09-03 15:08 | ED Abdominal Pain ---
General Chief Complaint: Abdominal/GI Problems Stated Complaint: ABD PAIN Nursing Triage Note: PT AMB TO [facility] WITH CC OF ABD PAIN. PT STATES THAT HE HAS HAD CONSTIPATION AND LOOSE STOOLS FOR SEVERAL WEEKS. PT REPORTS BLOOD IN URINE THAT STARTED TODAY. PT WAS SENT TO ER FROM [facility]. Source of Information: Patient Exam Limitations: No Limitations (ARLINE ABDULLAHI APRN) History of Present Illness Date Seen by Provider: Sep 03, 2023 Time Seen by Provider: 14:22 Initial Comments 73-year-old male presents to the ER with reports of difficulty with his bowels for at least 3 weeks. He states that he has been having a very small amount of diarrhea, but thinks that he is constipated. States that he has not had a good bowel movement in a while. Denies history of previous constipation issues. He denies abdominal pain, states he mostly just feels bloated. He states right now he is hungry. He reports that this morning when he urinated, he had blood in his urine. States that the urine in the toilet was red. He went and saw Dr. Nix today, states that he had a urinalysis done that was dark in color. Urine at bedside is yellow currently. He denies fevers, shortness of air, abdominal pain, nausea, vomiting, dysuria. (ARLINE ABDULLAHI APRN) Allergies and Home Medications Allergies Coded Allergies: No Known Drug Allergies (Unverified , 02/09/16) Patient Home Medication List Home Medication List Reviewed: Yes (ARLINE ABDULLAHI APRN) Acetaminophen (Tylenol) 325 Mg Tablet, 650 MG PO Q6H PRN for PAIN-MILD (1-4), (Reported) Entered as Reported by: LAWRENCE SILVER on 06/13/22 0958 Albuterol Sulfate (Ventolin Hfa) 1 Puff Puff, 2 PUFF IH QID PRN for WHEEZING, (Reported) Entered as Reported by: MARICARMEN SHELTON on 05/02/21 1005 Amlodipine Besylate (Amlodipine Besylate) 10 Mg Tablet, 10 MG PO DAILY, (Reported) Entered as Reported by: LAWRENCE SILVER on 06/13/22 0958 Ascorbate Calcium (Vitamin C) 500 Mg Tablet, 1,000 MG PO DAILY, (Reported) Entered as Reported by: MARICARMEN SHELTON on 05/02/21 1005 Aspirin (Aspirin) 81 Mg Tab.chew, 81 MG PO DAILY, (Reported) Entered as Reported by: LAWRENCE SILVER on 06/13/22 09 Atorvastatin Calcium (Lipitor) 80 Mg Tablet, 80 MG PO DAILY Prescribed by: KEIRA MANCILLA on 06/13/22 1058 Calcium Carbonate (Calcium) 500 Mg Calcium (1250 Mg) Tablet, 1,000 MG PO DAILY, (Reported) Entered as Reported by: LAWRENCE SILVER on 06/13/22 09 Carvedilol (Carvedilol) 3.125 Mg Tablet, 3.125 MG PO BID, (Reported) Entered as Reported by: LAWRENCE SILVER on 06/13/22 09 Clopidogrel Bisulfate (Clopidogrel) 75 Mg Tablet, 75 MG PO DAILY, (Reported) Entered as Reported by: LAWRENCE SILVER on 06/13/22957 Glycopyrrolate/Formoterol Fum (Bevespi Aerosphere Inhaler) 9 Mcg-4.8 Mcg Hfa.aer.ad, 2 PUFF IH BID, (Reported) Entered as Reported by: LAWRENCE SILVER on 06/13/22 09 Lisinopril (Lisinopril) 10 Mg Tablet, 10 MG PO DAILY, (Reported) Entered as Reported by: LAWRENCE SILVER on 06/13/22957 Pantoprazole Sodium (Pantoprazole Sodium) 20 Mg Tablet.dr, 20 MG PO DAILY, (Reported) Entered as Reported by: LAWRENCE SILVER on 06/13/22 09 Sulfamethoxazole/Trimethoprim (Bactrim Ds Tablet) 1 Each Tablet, 1 EACH PO BID Prescribed by: Arline Quintero on 09/03/23 1549 Review of Systems Review of Systems Constitutional: see HPI (ARLINE ABDULLAHI APRN) Past Hpspnnc-Ywjvvb-Ggajlb Hx Patient Social History Tobacco Use?: No Substance use?: No Alcohol Use?: No (ARLINE ABDULLAHI APRN) Immunizations Up To Date Tetanus Booster (TDap): Unknown First/Initial COVID19 Vaccinat: Received; unknown date Second COVID19 Vaccination Dajuan: Reveived; unknown date Third COVID19 Vaccination Date: Received; unknown date (ARLINE ABDULLAHI APRN) Seasonal Allergies Seasonal Allergies: No (ARLINE ABDULLAHI APRN) Past Medical History Surgery/Hospitalization HX: Cyst at the base of the skull that was removed in November of 2020. COPD, HTN Surgeries: Yes (BILATERAL KNEE SURGERIES (NOT REPLACEMENTS)) Adenoidectomy, Orthopedic, Tonsillectomy Respiratory: Yes COPD Cardiac: Yes High Cholesterol, Hypertension Neurological: No Genitourinary: No Gastrointestinal: No Musculoskeletal: Yes Arthritis Endocrine: No HEENT: Yes (WEARS GLASSES) Hearing Impairment: Denies Cancer: No Psychosocial: No Integumentary: No Blood Disorders: No (ARLINE ABDULLAHI APRN) Family Medical History No Pertinent Family Hx (ARLINE ABDULLAHI APRN) Physical Exam Vital Signs Vital Signs - First Documented 09/03/23 13:42 Pulse 98 B/P (MAP) 155/79 (104) Pulse Ox 87 O2 Delivery Room Air O2 Flow Rate 2.00 (KRISTI LEONE MD) Vital Signs Capillary Refill : (ARLINE ABDULLAHI APRN) Height/Weight/BMI Height: 5'9.50" Weight: 195lbs. 0.0oz. [id number]; 30.00 BMI Method:Stated General Appearance: WD/WN, no apparent distress Neck: supple, normal inspection Respiratory: lungs clear, normal breath sounds, no respiratory distress, no accessory muscle use Cardiovascular: regular rate, rhythm Gastrointestinal: normal bowel sounds, non tender, soft Extremities: normal range of motion, normal inspection Neurologic/Psychiatric: alert, normal mood/affect Skin: normal color, warm/dry (ARLINE ABDULLAHI APRN) Procedures/Interventions Suture Size: 4-0 (ARLINE ABDULLAHI APRN) Progress/Results/Core Measures Results/Orders Lab Results Laboratory Tests Test 09/03/23 13:46 09/03/23 14:30 Range/Units White Blood Count 9.8 4.3-11.0 10^3/uL Red Blood Count 4.24 L 4.30-5.52 10^6/uL Hemoglobin 13.7 13.3-17.7 g/dL Hematocrit 42 40-54 % Mean Corpuscular Volume 99 80-99 fL Mean Corpuscular Hemoglobin 32 25-34 pg Mean Corpuscular Hemoglobin Concent 33 32-36 g/dL Red Cell Distribution Width 13.0 10.0-14.5 % Platelet Count 235 130-400 10^3/uL Mean Platelet Volume 9.7 9.0-12.2 fL Immature Granulocyte % (Auto) 0 % Neutrophils (%) (Auto) 78 H 42-75 % Lymphocytes (%) (Auto) 10 L 12-44 % Monocytes (%) (Auto) 10 0-12 % Eosinophils (%) (Auto) 2 0-10 % Basophils (%) (Auto) 0 0-10 % Neutrophils # (Auto) 7.6 1.8-7.8 10^3/uL Lymphocytes # (Auto) 0.9 L 1.0-4.0 10^3/uL Monocytes # (Auto) 1.0 0.0-1.0 10^3/uL Eosinophils # (Auto) 0.2 0.0-0.3 10^3/uL Basophils # (Auto) 0.0 0.0-0.1 10^3/uL Immature Granulocyte # (Auto) 0.0 0.0-0.1 10^3/uL Sodium Level 137 135-145 MMOL/L Potassium Level 4.1 3.6-5.0 MMOL/L Chloride Level 100 98-107 MMOL/L Carbon Dioxide Level 29 21-32 MMOL/L Anion Gap 8 5-14 MMOL/L Blood Urea Nitrogen 13 7-18 MG/DL Creatinine 1.16 0.60-1.30 MG/DL Estimat Glomerular Filtration Rate 66 BUN/Creatinine Ratio 11 Glucose Level 95 70-105 MG/DL Calcium Level 9.5 8.5-10.1 MG/DL Corrected Calcium 9.5 8.5-10.1 MG/DL Total Bilirubin 0.8 0.1-1.0 MG/DL Aspartate Amino Transf (AST/SGOT) 26 5-34 U/L Alanine Aminotransferase (ALT/SGPT) 31 0-55 U/L Alkaline Phosphatase 110 40-136 U/L Total Protein 7.5 6.4-8.2 GM/DL Albumin 4.0 3.2-4.5 GM/DL Lipase 12 8-78 U/L Urine Color YELLOW Urine Clarity CLEAR Urine pH 5.5 5-9 Urine Specific [place] 1.020 1.016-1.022 Urine Protein 1+ H NEGATIVE Urine Glucose (UA) NEGATIVE NEGATIVE Urine Ketones NEGATIVE NEGATIVE Urine Nitrite POSITIVE H NEGATIVE Urine Bilirubin NEGATIVE NEGATIVE Urine Urobilinogen 0.2 < = 1.0 MG/DL Urine Leukocyte Esterase 2+ H NEGATIVE Urine RBC (Auto) NEGATIVE NEGATIVE Urine RBC NONE /HPF Urine WBC 10-25 H /HPF Urine Crystals NONE /LPF Urine Bacteria LARGE H /HPF Urine Casts NONE /LPF Urine Mucus NEGATIVE /LPF Urine Culture Indicated YES (KIRSTI LEONE MD) Micro Results Microbiology 09/03/23 Urine Culture - Preliminary, Resulted Escherichia coli (KRISTI LEONE MD) Vital Signs/I&O 09/03/23 09/03/23 09/03/23 13:42 13:42 15:57 Pulse 98 96 B/P (MAP) 155/79 (104) 145/88 Pulse Ox 87 92 O2 Delivery Room Air Nasal Cannula Room Air O2 Flow Rate 2.00 (KRISTI LEONE MD) Blood Pressure Mean: 104 Progress Progress Note : Progress Note Patient seen and evaluated, resting comfortably in bed, no acute distress. Based on exam and symptoms, work-up initiated including CBC, CMP, lipase, UA, CT abdomen pelvis. IV fluids ordered. 1502 Labs reviewed. CBC shows slightly elevated neutrophil percentage 78, normal white count. CMP grossly normal. Lipase normal. Urinalysis shows 1+ protein, positive nitrates, 2+ leukocytes, 10-25 WBCs, large bacteria. Rocephin ordered for urinary tract infection. 1547 CT reviewed. It shows subacute colitis of the rectosigmoid colon without perforation or abscess. Dilation of the infrarenal abdominal aorta is noted measuring 2.6 cm with severe atherosclerosis. Inferior mesenteric artery remains patent proximally. Results discussed with patient. Bowel issues likely related to colitis. Blood in urine likely related to urinary tract infection, though patient currently does not have blood in his urine. Will discharge with prescription for Bactrim, this should cover both colitis and the urinary tract infection. Patient is stable for discharge. Discharge instructions and return precautions provided. (ARLINE ABDULLAHI APRN) Diagnostic Imaging Diagonstic Imaging: CT Plain Films/CT/US/NM/MRI: abdomen, pelvis Comments [facility]. [place], [place] NAME: TOYA CHAVEZ [facility] REC#: [id number] PT STATUS: DEP ER : [id number] PHYSICIAN: ARLINE ABDULLAHI APRN ADMIT DATE: 09/03/23/ER Signed Date of Exam:09/03/23 CT ABDOMEN/PELVIS W CT ABDOMEN/PELVIS W TECHNIQUE: Multiple contiguous axial images were obtained through the abdomen and pelvis after administration of intravenous contrast. All CT scans use one or more of the following dose optimizing techniques: automated exposure control, MA and/or KvP adjustment based on patient size and exam type or iterative reconstruction. INDICATION: Abdominal pain with constipation. COMPARISON: None available. FINDINGS: Lower chest: The lung bases are clear. No pericardial or pleural effusion. Peritoneum: No free intraperitoneal air or fluid. Liver and biliary system: The liver is normal. Gallbladder is normal. No biliary duct dilatation. Spleen and Pancreas: Spleen is normal. A normal variant splenule is present near the splenic hilum at the tail of the pancreas. The pancreas enhances normally without mass lesion or peripancreatic inflammatory changes. Adrenals: Normal. tract: The kidneys enhance normally without suspicious mass or obstruction. Urinary bladder is distended without wall thickening. Prostate is not enlarged. GI tract: Stomach is partially filled with fluid and air. No bowel obstruction. Mild circumferential wall thickening in the rectosigmoid colon with minimal surrounding induration of the fat. Chronic vasa recta engorgement in the descending and sigmoid colon suggests remote inflammation. Appendix is normal. Vasculature and Lymph nodes: Ectasia of the infrarenal abdominal aorta measures 2.6 cm on sagittal and coronal reformats. No abdominal or pelvic lymphadenopathy. Musculoskeletal: No concerning osseous lesion. IMPRESSION: 1. Subacute colitis of the rectosigmoid colon without perforation or abscess. Please correlate for symptoms of colitis. 2. Ectasia of infrarenal abdominal aorta with severe atherosclerosis. The inferior mesenteric artery remains patent proximally. Dictated by: Dictated on workstation # [id number] Dict: 09/03/23 1511 Trans: 09/03/23 1629 [id number] Interpreted by: MIRA MALCOLM MD Electronically signed by: MIRA MALCOLM MD 09/03/23 6853 (ARLINE ABDULLAHI APRN) Departure Impression Primary Impression: Infectious colitis Additional Impressions: Urinary tract infection Aortic dilatation Disposition: 01 HOME, SELF-CARE Condition: Stable Departure-Patient Inst. Decision time for Depature: 15:47 (ARLINE ABDULLAHI APRN) Referrals: BRIAN NIX DO (PCP/Family) Primary Care Physician Patient Instructions: Colitis Add. Discharge Instructions: Complete full course of your antibiotic as prescribed. Consume a clear liquid diet for the next 24 hours to give your bowels a rest. Follow-up with your primary care provider after you complete the antibiotic. Return for severe abdominal pain, fever, or any other new, concerning, or worsen ing symptoms. All discharge instructions reviewed with patient and/or family. Voiced understanding. Scripts Sulfamethoxazole/Trimethoprim (Bactrim Ds Tablet) 1 Each Tablet 1 EACH PO BID for 7 Days, #14 TAB 0 Refills Prov: ARLINE ABDULLAHI APRN 09/03/23 ATTENDING PHYSICIAN NOTE: I was physically present as attending physician in the emergency department during the care of this patient. I briefly discussed the clinical history and work-up findings with Arline Abdullahi, CAESAR. We discussed approach to care and antibiotic selection. I did not personally interview or examine this patient. I was not otherwise directly involved in the decision making or delivery of care for this patient. (KRISTI LEONE MD) Copy Copies To 1: BRIAN NIX BRITTANY R APRN Sep 03, 2023 15:08 KRISTI LENOE MD Sep 06, 2023 06:33
[2023-09-03] MEDS ORDERED: cefTRIAXone IV/IM 1,000 MG in NS (IVPB) 50 ML 50 ML IV ONE (15:15)
--- NOTE | 2023-09-03 15:23 | Diagnostic Imaging Report ---
CT ABDOMEN/PELVIS W TECHNIQUE: Multiple contiguous axial images were obtained through the abdomen and pelvis after administration of intravenous contrast. All CT scans use one or more of the following dose optimizing techniques: automated exposure control, MA and/or KvP adjustment based on patient size and exam type or iterative reconstruction. INDICATION: Abdominal pain with constipation. COMPARISON: None available. FINDINGS: Lower chest: The lung bases are clear. No pericardial or pleural effusion. Peritoneum: No free intraperitoneal air or fluid. Liver and biliary system: The liver is normal. Gallbladder is normal. No biliary duct dilatation. Spleen and Pancreas: Spleen is normal. A normal variant splenule is present near the splenic hilum at the tail of the pancreas. The pancreas enhances normally without mass lesion or peripancreatic inflammatory changes. Adrenals: Normal. tract: The kidneys enhance normally without suspicious mass or obstruction. Urinary bladder is distended without wall thickening. Prostate is not enlarged. GI tract: Stomach is partially filled with fluid and air. No bowel obstruction. Mild circumferential wall thickening in the rectosigmoid colon with minimal surrounding induration of the fat. Chronic vasa recta engorgement in the descending and sigmoid colon suggests remote inflammation. Appendix is normal. Vasculature and Lymph nodes: Ectasia of the infrarenal abdominal aorta measures 2.6 cm on sagittal and coronal reformats. No abdominal or pelvic lymphadenopathy. Musculoskeletal: No concerning osseous lesion. IMPRESSION: 1. Subacute colitis of the rectosigmoid colon without perforation or abscess. Please correlate for symptoms of colitis. 2. Ectasia of infrarenal abdominal aorta with severe atherosclerosis. The inferior mesenteric artery remains patent proximally. Dictated by: Dictated on workstation # [id number]
[2023-09-03] MEDS ORDERED: SULF1TAB38 PO (15:49)
[2023-09-03 15:57] VITALS: BP 145/88
== END 2023-09-03 15:57 | disposition home or self-care (01) ==
LOC: EDUNIT# 13:24 → ER 13:26
DX: A09 Infectious gastroenteritis and colitis, unspecified (principal); N39.0 Urinary tract infection, site not specified; I77.819 Aortic ectasia, unspecified site
CPT/HCPCS: 36415; 74177; 80053; 81000; 83690; 85025; 87077; 87088; 87186; 96361; 96365